=== PATIENT | female | born 1945 | race Asian ===

== ENCOUNTER 2016-10-23 13:48 | Observation (INO) | payer MEDICARE, OTHER ==
--- NOTE | 2016-10-23 14:50 | ED Physician Documentation ---
PD HPI FOCAL NEURO - Stated complaint Stated Complaint: SHAKES/DIZZY - Chief complaint Chief Complaint: Neuro - History obtained from History obtained from: Patient - History of Present Illness Timing - onset: Other (This is a 70-year-old woman with history of arthritis but really no other known past medical history, but does not have a primary care physician who presents with 2 Days of feeling off balance type dizziness associated with her left leg occasionally giving out on her. She has back pain but that is not new, there is no pain in the left leg and no headache. She does have some mild nausea and headache with this. There is no head injury. No chest pain or trouble breathing that was new, she does have mild chronic trouble breathing "I need to exercise more.") - Additional information Additional information: She walks with a cane- but always uses a cane. Review of Systems Ten Systems: 10 systems reviewed and negative Constitutional: reports: Chills. denies: Fever Ears: denies: Drainage/discharge Nose: denies: Rhinorrhea / runny nose, Congestion Throat: denies: Sore throat Cardiac: denies: Chest pain / pressure, Palpitations Respiratory: denies: Dyspnea, Cough PD PAST MEDICAL HISTORY - Past Medical History Past Medical History: No - Present Medications Home Medications: Ambulatory Orders Medication Instructions Recorded Confirmed Calcium Carbonate/Vitamin D3 1 cap PO DAILY 10/23/16 10/23/16 [Calcium 600-Vit D3 500 Softgel] Multivitamin [Multiple Vitamins] 1 tab PO DAILY 10/23/16 10/23/16 Naproxen [Naprosyn] 500 mg pe PO PRN PRN 10/23/16 10/23/16 - Allergies Allergies/Adverse Reactions: Allergies Allergy/AdvReac Type Severity Reaction Status Date / Time No Known Drug Allergies Allergy Verified 10/23/16 14:54 - Living Situation Living Situation: reports: Alone - Social History Does the pt smoke?: No Does the pt drink ETOH?: No Does the pt have substance abuse?: No - Family History Family history: reports: Non contributory PD ED PE NORMAL - Vitals Vital signs reviewed: Yes - General General: Alert and oriented X 3, No acute distress - HEENT HEENT: PERRL, EOMI, Ears normal - Neck Neck: Supple, no meningeal sign, No bony TTP - Cardiac Cardiac: RRR, No murmur - Respiratory Respiratory: No respiratory distress, Clear bilaterally - Abdomen Abdomen: Soft, Non tender - Back Back: No CVA TTP, No spinal TTP - Derm Derm: Normal color, Warm and dry - Extremities Extremities: No deformity, No tenderness to palpate, Normal ROM s pain, No edema , No calf tenderness / cord - Neuro Neuro: Alert and oriented X 3, lap runner 2-12 intact, No motor deficit, No sensory deficit, Normal speech - Psych Psych: Normal mood, Normal affect NIHSS - Time Time: 14:40 - Level of Consciousness Level of consciousness: (0) Alert, Keenly responsive LOC Questions: (0) Answers both Q's correct LOC Commands: (0) Performs both correctly - Gaze Best Gaze: (0) Normal - Visual Visual: (0) No loss - Facial Palsy Facial Palsy: (0) Normal, symmetrical movement - Motor Arms (both separate) Motor Arm (right): (0) No drift Motor Arm (left): (0) No drift - Motor Legs (both separate) Motor Leg (right): (0) No drift Motor Leg (left): (0) No drift - Limb Ataxia Limb Ataxia: (0) Absent - Sensory Sensory: (0) Normal - Best Language Best Language: (0) No aphasia - Dysarthria Dysarthria: (0) Normal - Extinction and Inattention (formally neg Extinction and inattention: (0) No abnormality - Total Score/Results Total Score/Result: 0 Results - Vitals Vitals: Vital Signs - 24 hr 10/23/16 10/23/16 10/23/16 13:55 15:02 16:48 Temperature 36.9 C 36.9 C Heart Rate 78 78 67 Respiratory 20 15 16 Rate Blood Pressure 186/103 H 180/84 H 173/74 H O2 Saturation 94 96 93 Oxygen O2 Source Room air - EKG (time done) 1440 Rate: Rate (enter#) (69) Rhythm: NSR Intervals: Other (LAFB) QRS: LVH Ischemia: Non specific changes Compare to prior EKG: Old EKG unavailable Computer interpretation: Agree with computer - Labs Labs: Laboratory Tests 10/23/16 10/23/16 10/23/16 15:03 15:03 15:03 WBC 6.9 RBC 4.68 Hgb 15.2 Hct 44.7 MCV 95.5 MCH 32.6 H MCHC 34.1 RDW 13.8 Plt Count 175 MPV 9.4 Neut # 5.7 Lymph # 0.7 L [place] # 0.3 Eos # 0.1 Baso # 0.0 Absolute Nucleated RBC 0.00 Nucleated RBCs 0.0 PT INR Sodium 143 Potassium 2.9 L Chloride 103 Carbon Dioxide 30 Anion Gap 10.0 BUN 13 Creatinine 0.9 Estimated GFR (MDRD) 62 L Glucose 142 H Calcium 9.5 Magnesium 1.9 Total Bilirubin 0.6 AST 34 ALT 23 Alkaline Phosphatase 56 Troponin I < 0.04 Total Protein 6.8 Albumin 4.1 Globulin 2.7 Albumin/Globulin Ratio 1.5 Lipase 30 Vitamin B12 10/23/16 10/23/16 15:03 15:04 WBC RBC Hgb Hct MCV MCH MCHC RDW Plt Count MPV Neut # Lymph # [place] # Eos # Baso # Absolute Nucleated RBC Nucleated RBCs PT 11.2 INR 1.0 Sodium Potassium Chloride Carbon Dioxide Anion Gap BUN Creatinine Estimated GFR (MDRD) Glucose Calcium Magnesium Total Bilirubin AST ALT Alkaline Phosphatase Troponin I Total Protein Albumin Globulin Albumin/Globulin Ratio Lipase Vitamin B12 409 - Rads (name of study) CT Head Radiology: Prelim report reviewed (age related change, but NAD) PD MEDICAL DECISION MAKING - ED course ED course: 70-year-old woman with symptoms that are acutely concerning for small CVA with loss of function in the left lower extremity, she is outside the window for TPA. CT shows no abnormality, will place in observation for potential MRI. Call the hospitalist, Dr Meyer at 5:26pm for admission. Potassium was repleted orally. Departure - Departure Disposition: ED Place in Observation Clinical Impression: Left leg weakness, Hypokalemia Condition: Stable Discharge Date/Time: 10/23/16 18:18
[2016-10-23 15:14] LABS: BASOPHILS % (AUTO) 0.5 %; EOSINOPHILS # (AUTO) 0.1 10^3/uL (0.0-0.7); EOSINOPHILS % (AUTO) 1.4 %; HCT - HEMATOCRIT 44.7 % (37.0-47.0); HGB - HEMOGLOBIN 15.2 g/dL (12.0-16.0); LYMPHOCYTES # (AUTO) 0.7 10^3/uL (1.5-3.5); LYMPHOCYTES % (AUTO) 10.4 %; MEAN CORPUSCULAR HEMOGLOBIN 32.6 pg (27.0-31.0); MEAN CORPUSCULAR HGB CONC 34.1 g/dL (32.0-36.0); MEAN CORPUSCULAR VOLUME 95.5 fL (81.0-99.0); MEAN PLATELET VOLUME 9.4 fL (7.9-10.8); MONOCYTES # (AUTO) 0.3 10^3/uL (0.0-1.0); NEUTROPHILS # (AUTO) 5.7 10^3/uL (1.5-6.6); NEUTROPHILS % (AUTO) 82.7 %; RED BLOOD COUNT 4.68 10^6/uL (4.20-5.40); RED CELL DISTRIBUTION WIDTH 13.8 % (12.0-15.0); UNCORRECTED WHITE BLOOD COUNT 6.9 x10^3/uL; WHITE BLOOD COUNT 6.9 x10^3/uL (4.8-10.8)
[2016-10-23 15:23] LABS: ALBUMIN/GLOBULIN RATIO 1.5 (1.0-2.2); BILIRUBIN,TOTAL 0.6 mg/dL (0.2-1.0); CALCIUM 9.5 mg/dL (8.5-10.3); CREATININE 0.9 mg/dL (0.4-1.0); MAGNESIUM 1.9 mg/dL (1.7-2.8); POTASSIUM 2.9 mmol/L (3.5-5.0); TOTAL PROTEIN 6.8 g/dL (6.7-8.2)
[2016-10-23] MEDS ORDERED: POTASSIUM BICARB 25 MEQ TABLET PO STA (15:34)
[2016-10-23] MEDS ORDERED: POTASSIUM BICARB 25 MEQ TABLET PO ONE (16:00)
--- NOTE | 2016-10-23 17:11 | CT Preliminary Report ---
Exam: CT Head W/O IMPRESSION: 1. Negative for acute or focal intracranial abnormality. 2. Mild nonfocal white matter disease. Nonspecific but most commonly attributed to chronic microangio janusz. [facility] SITE ID: [id number]
--- NOTE | 2016-10-23 17:13 | CT Report ---
EXAM: CT HEAD EXAM DATE: 10/23/2016 05:01 PM. CLINICAL HISTORY: Left leg weak. COMPARISON: None. TECHNIQUE: Multiaxial CT images were obtained from the foramen magnum to the vertex. IV contrast: Non e. Reformats: Coronal. In accordance with CT protocol optimization, one or more of the following dose reduction techniques w ere utilized for this exam: automated exposure control, adjustment of mA and/or KV based on patient s ize, or use of iterative reconstructive technique. FINDINGS: Parenchyma: There is mild periventricular white matter hypodensity. Negative for acute hemorrhage. No midline shift or mass effect. Extraaxial Spaces: There is no abnormal subdural or epidural fluid collection. Ventricles: The ventricles are normal and symmetric in size. Sinuses: Imaged paranasal sinuses, orbits, and mastoids show no significant abnormality. Bones: No evidence of fracture or calvarial defect. Other: None. IMPRESSION: 1. Negative for acute or focal intracranial abnormality. 2. Mild nonfocal white matter disease. Nonspecific but most commonly attributed to chronic microangio janusz. [facility] Referring Provider Line: [phone] SITE ID: [id number]
--- NOTE | 2016-10-23 18:12 | HISTORY & PHYSICAL EXAMINATION ---
Chief Complaint - Chief Complaint Chief Complaint: left leg weakness History of Present Illness - Admitted From Admitted From:: ER - History Obtained From Records Reviewed: yes History obtained from: patient and medical records Exam Limitations: none - History of Present Illness HPI Comment/Other: This is a 70-year-old woman with history of arthritis but really no other known past medical history, but does not have a primary care physician who presents with 2 Days of feeling off balance type dizziness associated with her left leg occasionally giving out on her. She has back pain but that is not new, there is no pain in the left leg and no headache. She does have some mild nausea and headache with this. There is no head injury. No chest pain or trouble breathing that was new, she does have mild chronic trouble breathing "I need to exercise more.") History - Past Medical History Cardiovascular: reports: None Respiratory: reports: None, Shortness of breath Neuro: reports: None Endocrine/Autoimmune: reports: None GI: reports: GERD SHOOK SPLICER: reports: None : reports: Incontinence HEENT: reports: Chronic sinusitis Psych: reports: None Musculoskeletal: reports: Osteoarthritis Derm: reports: None MRSA Hx?: No Other Past Medical History: obesity - Past Surgical History HEENT: reports: Tonsil/Adenoidectomy - Family & Social History Living arrangement: At home Living Situation: Alone - Substance History Abuse: Recurrent use of substance despite neg consequences: NONE Dependence: Experiences withdrawal or developed tolerances: NONE - POLST Patient has POLST: No POLST Status: Full Code Meds/Allgy - Home Medications Home Medications: Ambulatory Orders Medication Instructions Recorded Confirmed Calcium Carbonate/Vitamin D3 1 cap PO DAILY 10/23/16 10/23/16 [Calcium 600-Vit D3 500 Softgel] Multivitamin [Multiple Vitamins] 1 tab PO DAILY 10/23/16 10/23/16 Naproxen [Naprosyn] 500 mg pe PO PRN PRN 10/23/16 10/23/16 - Allergies Allergies/Adverse Reactions: Allergies Allergy/AdvReac Type Severity Reaction Status Date / Time No Known Drug Allergies Allergy Verified 10/23/16 14:54 Exam - Vital Signs Reviewed Vital Signs: Yes Vital Signs: Vital Signs x48h Temp Pulse Resp BP Pulse Ox 10/23/16 16:48 67 16 173/74 H 93 10/23/16 15:02 36.9 C 78 15 180/84 H 96 10/23/16 13:55 36.9 C 78 20 186/103 H 94 - Physical Exam General Appearance: positive: No acute distress, Alert Eyes Bilateral: positive: Normal inspection, PERRL Conclusion/Plan - Lab Results Lab results reviewed: Yes Fish Bones: 10/23/16 15:03 10/23/16 15:03 Other Lab Results: Abnormal Lab Results 10/23/16 10/23/16 15:03 15:03 MCH 32.6 pg H pg (27.0-31.0) Lymph # 0.7 10^3/uL L 10^3/uL (1.5-3.5) Potassium 2.9 mmol/L L mmol/L (3.5-5.0) Estimated GFR (MDRD) 62 L (>89) Glucose 142 mg/dL H mg/dL (70-100) - Diagnostic Imaging Results Diagnostic Imaging Results: positive: Prelim report reviewed - EKG Results EKG Interpreted Independently: Yes Issues/Core Measures - Anticipated LOS Anticipated Stay Length: Less than 2 midnights
[2016-10-23] MEDS ORDERED: ONDANSETRON ODT 4 MG TABLET TL PRN (19:34)
[2016-10-23] MEDS ORDERED: ACETAMINOPHEN 325 MG TABLET PO PRN (19:34)
[2016-10-23] MEDS ORDERED: SODIUM CHLORIDE FLUSH 0.9% 10 ML SYRINGE IVP PRN (19:34)
[2016-10-23] MEDS ORDERED: POTASSIUM CHLORIDE INJ 40 MEQ in SODIUM CHLORIDE 0.9% 480 ML IV ONE (19:44)
[2016-10-23 20:06] LABS: PT - PROTHROMBIN TIME 11.2 secs (9.9-12.6)
[2016-10-23] MEDS ORDERED: POTASSIUM CHLOR 10 MEQ/100 ML 100 ML IV SCH ×2 (21:28→21:31)
[2016-10-23] MEDS: ENOXAPARIN 40 MG/0.4 ML SYRINGE SUBQ SCH (21:36)
[2016-10-23] MEDS: ASPIRIN 325 MG TABLET PO SCH (21:37)
[2016-10-23] MEDS: SODIUM CHLORIDE 0.9% 1,000 ML IV SCH (21:37)
[2016-10-23] MEDS ORDERED: POTASSIUM CHLORIDE 20 MEQ TABLET PO SCH (22:00)
[2016-10-23] MEDS: SODIUM CHLORIDE FLUSH 0.9% 10 ML SYRINGE IVP SCH (22:57)
--- NOTE | 2016-10-23 23:12 | Ultrasound Preliminary Report ---
Exam: US Carotid Doppler Complete IMPRESSION: No hemodynamically significant stenoses seen. Validated velocity measurements with angiographic measurements and velocity criteria are extrapolated from diameter data as defined by the Society of Radiologists in Ultrasound Consensus Conference Radi ology 2003; 229;340-346. [facility] SITE ID: [id number]
--- NOTE | 2016-10-23 23:24 | Ultrasound Report ---
EXAM: CAROTID DOPPLER ULTRASOUND EXAM DATE: 10/23/2016 09:42 PM. CLINICAL HISTORY: Cerebrovascular accident. COMPARISON: None. TECHNIQUE: Real-time sonographic vascular imaging was performed by the plumber's assistant through the [employer] d arterial system with a linear transducer utilizing color-flow, Doppler flow and spectral analysis. Multiple accounting representative static images were saved for review. FINDINGS: Bilateral vertebral artery flow is antegrade. Mild amount of calcified plaque seen at the b ilateral carotid bulbs extending into the proximal internal carotid arteries. VELOCITIES: Right: CCA Prox: PSV 58.4 cm/sec. CCA Dist: PSV 43.3 cm/sec, EDV 9.6 cm/sec. ICA Prox: PSV 43.6 cm/sec, EDV 12.0 cm/sec. ICA Mid: PSV 78.8 cm/sec, EDV 19.0 cm/sec. ICA Dist: PSV 71.9 cm/sec, EDV 17.6 cm/sec. ECA: PSV 67.2 cm/sec. Vertebral Artery: PSV 81.8 cm/sec. RVA flow direction: Antegrade. Left: CCA Prox: PSV 78.7 cm/sec. CCA Dist: PSV 69.5 cm/sec, EDV 10.7 cm/sec. ICA Prox: PSV 59.8 cm/sec, EDV 16.2 cm/sec. ICA Mid: PSV 66.8 cm/sec, EDV 14.8 cm/sec. ICA Dist: PSV 82.5 cm/sec, EDV 26.0 cm/sec. ECA: PSV 79.7 cm/sec. Vertebral Artery: PSV 85.7 cm/sec. LVA flow direction: Antegrade. Other: Technically difficult exam due to constant motion. IMPRESSION: No hemodynamically significant stenoses seen. Validated velocity measurements with angiographic measurements and velocity criteria are extrapolated from diameter data as defined by the Society of Radiologists in Ultrasound Consensus Conference Radi ology 2003; 229;340-346. [facility] Referring Provider Line: [phone] SITE ID: [id number]
[2016-10-24] MEDS: SODIUM CHLORIDE 0.9% 1,000 ML IV SCH ×2 (05:54→08:45)
[2016-10-24] MEDS: SODIUM CHLORIDE FLUSH 0.9% 10 ML SYRINGE IVP SCH (05:58)
[2016-10-24] MEDS ORDERED: PANTOPRAZOLE 40 MG VIAL ONE (05:59)
[2016-10-24 06:12] LABS: BASOPHILS # (AUTO) 0.1 10^3/uL (0.0-0.1); BASOPHILS % (AUTO) 0.9 %; EOSINOPHILS # (AUTO) 0.2 10^3/uL (0.0-0.7); EOSINOPHILS % (AUTO) 3.7 %; HCT - HEMATOCRIT 43.8 % (37.0-47.0); HGB - HEMOGLOBIN 14.6 g/dL (12.0-16.0); LYMPHOCYTES # (AUTO) 1.3 10^3/uL (1.5-3.5); MEAN CORPUSCULAR HEMOGLOBIN 32.6 pg (27.0-31.0); MEAN CORPUSCULAR HGB CONC 33.3 g/dL (32.0-36.0); MEAN PLATELET VOLUME 9.6 fL (7.9-10.8); MONOCYTES # (AUTO) 0.4 10^3/uL (0.0-1.0); MONOCYTES % (AUTO) 6.9 %; NEUTROPHILS # (AUTO) 4.1 10^3/uL (1.5-6.6); NEUTROPHILS % (AUTO) 66.5 %; RED BLOOD COUNT 4.47 10^6/uL (4.20-5.40); RED CELL DISTRIBUTION WIDTH 13.8 % (12.0-15.0); UNCORRECTED WHITE BLOOD COUNT 6.1 x10^3/uL; WHITE BLOOD COUNT 6.1 x10^3/uL (4.8-10.8)
[2016-10-24 06:21] LABS: ALBUMIN/GLOBULIN RATIO 1.3 (1.0-2.2); BILIRUBIN,TOTAL 0.7 mg/dL (0.2-1.0); CALCIUM 8.8 mg/dL (8.5-10.3); CREATININE 0.8 mg/dL (0.4-1.0); POTASSIUM 3.6 mmol/L (3.5-5.0); TOTAL PROTEIN 6.2 g/dL (6.7-8.2)
[2016-10-24 06:32] LABS: BILIRUBIN,URINE NEGATIVE (NEGATIVE)
[2016-10-24 06:39] LABS: UR CULTURE IF IND NOT INDICATED; WBC,URINE 0-3 /HPF (0-5)
[2016-10-24] MEDS ORDERED: PANTOPRAZOLE 40 MG VIAL IVP SCH (07:00)
[2016-10-24] MEDS ORDERED: CALCIUM CARB (OYSTER SHELL) 500 MG TABLET PO SCH (08:00)
[2016-10-24] MEDS ORDERED: CHOLECALCIFEROL 400 UNIT TABLET PO SCH (08:00)
[2016-10-24] MEDS ORDERED: CYANOCOBALAMIN 1,000 MCG/ML VIAL IM ONE (08:08)
--- NOTE | 2016-10-24 08:11 | Discharge Plan ---
Discharge Plan Disposition: Home, Self Care Condition: Good Prescriptions: [place]-3 Acid Ethyl Esters [Lovaza] 1 gm PO DAILY #30 capsule Diet: Cardiac Activity Restrictions: No Restrictions Shower Restrictions: No Driving Restrictions: No Weight Bearing: Full Weight Instruction Topics: Exercises Back Leg Pull, Exercises Back Leg Reach, Leg Low Back Pain Poss Causes Additional Instructions or Follow Up instructions: Please continue to take all home medication as prescribed. You will need to see your primary care provider for additional needs including the pain and weakness in your left leg. This can be due to arthritis or sciatic nerve pain. Take tylenol or naproxen for the pain. Take an aspirin a day and watch your cholesterol. Continue to get plenty of sleep at night. Taking Melatonin 10mg can help with sleep and is a natural sedative Be sure to get plenty of water during the day and eat a heart healthy diet. Return to the ER is symptoms reoccur or worsen. If you have chest pain, shortness of breath or fever return to the ER. No Smoking: If you smoke, Please STOP! Call for help. Follow-up with: Nicole Loja ARNP [Physician No Access] -
--- NOTE | 2016-10-24 08:20 | DISCHARGE SUMMARY ---
Discharge Summary Admit Date: 10/23/16 Discharge Date: 10/24/16 Discharging Provider: Fiorella Prabhakar APRN Code Status: Attempt Resuscitation Condition at Discharge: Good Discharge Disposition: 01 Home, Self Care Discharge Facility Name: home - DIAGNOSES Admission Diagnoses: 1 Acute left leg weakness, unspecified 2. Acute hypokalemia 3. Alcohol usage, unspecified 4. obesity with BMI>35 from excessive caloric intake 5. Hyperglycemia, unspecified Discharge Diagnoses with Status of Each Condition: 1. Acute left leg weakness with probable osteoarthritis of multiple sites 2. Acute on chronic alcohol usage without dependence, daily usage 3. Acute hypokalemia with losses 4. Obesity with BMI>30 with excessive caloric intake 5. - HPI History of Present Illness: This is a 70-year-old woman with history of arthritis but really no other known past medical history, but does not have a primary care physician who presents with 2 Days of feeling off balance type dizziness associated with her left leg occasionally giving out on her. She has back pain but that is not new, there is no pain in the left leg and no headache. She does have some mild nausea and headache with this. There is no head injury. No chest pain or trouble breathing that was new, she does have mild chronic trouble breathing "I need to exercise more." - CONSULTS | PROCEDURES Consultations: none Procedures: CT of Head -no acute infarct Carotid doppler - no significant stenosis seen MRA/MRI: pending, patient to have results sent Echo: - HOSPITAL COURSE Hospital Course: Patient is a 70 year old female who presented to the ER with complaint of weakness to the left lower leg for several weeks and worse around the knee and hip joint.She states it "cira alot when I am walking and need to exercise more". She had a low potassium in the ER and the provider, Dr Adame thought she should be admitted for possible CVA/TIA of left side. Patient had a CT of the head, negative for acute process. Carotid ultrasound doppler was negative for stenosis. MRI/MRA of the head and neck was pending at time of discharge. Echo completed prior to discharge and results pending. Hyperglycemia was probably related to patients alcohol beverage and dinner prior to the lab draw. No elevation in blood glucose morning of discharge. Patient was given an aspirin daily. Lipid profile checked and slightly high total cholesterol. Patient was started on omega 3 and given dietary options for heart heathy diet. She did not want to take a statin. She was encouraged to exercise more and as tolerated. She continued MVI, calcium and vitamin D supplemts and naproxen for arthritis. Patient received tylenol for fever and zofran for nausea. She did receive xanax prior to the MRA/MRI for anxiety regarding the study. All blood draws completed and her potassium levels improved and other electrolytes and CBC within normal limits at discharge. She was discharged home with instructions for followup with primary care within 1 week or sooner if symptom reoccurred. - ALLERGIES Allergies/Adverse Reactions: Allergies Allergy/AdvReac Type Severity Reaction Status Date / Time No Known Drug Allergies Allergy Verified 10/23/16 14:54 - MEDICATIONS Home Medications: Ambulatory Orders Medication Instructions Recorded Confirmed Calcium Carbonate/Vitamin D3 1 cap PO DAILY 10/23/16 10/23/16 [Calcium 600-Vit D3 500 Softgel] Multivitamin [Multiple Vitamins] 1 tab PO DAILY 10/23/16 10/23/16 Naproxen [Naprosyn] 500 mg pe PO PRN PRN 10/23/16 10/23/16 [place]-3 Acid Ethyl Esters [Lovaza] 1 gm PO DAILY #30 capsule 10/24/16 - PHYSICAL EXAM AT DISCHARGE General Appearance: positive: No acute distress, Alert Eyes Bilateral: positive: Normal inspection, PERRL, EOMI ENT: positive: ENT inspection nml, Pharynx nml, No signs of dehydration Neck: positive: Nml inspection, Thyroid nml, No JVD, Trachea midline Respiratory: positive: Chest non-tender, No respiratory distress, Breath sounds nml Cardiovascular: positive: Regular rate & rhythm, No murmur, No gallop Peripheral Pulses: positive: 2+ Abdomen: positive: Non-tender, No organomegaly, Nml bowel sounds, No distention Rectal: positive: Non-tender Back: positive: Nml inspection Skin: positive: Color nml, No rash, Warm, Dry Extremities: positive: Non-tender, Full ROM, Nml appearance, No pedal edema. negative: Calf tenderness Neurologic/Psychiatric: positive: Oriented x3, CN's nml (2-12), Motor nml, Sensation nml, Mood/affect nml - LABS Result Diagrams: 10/24/16 05:45 10/24/16 05:45 Other Lab Results: Abnormal Lab Results 10/23/16 10/23/16 10/24/16 15:03 15:03 05:45 MCH 32.6 pg H pg 32.6 pg H pg (27.0-31.0) (27.0-31.0) Lymph # 0.7 10^3/uL L 10^3/uL 1.3 10^3/uL L 10^3/uL (1.5-3.5) (1.5-3.5) Potassium 2.9 mmol/L L mmol/L (3.5-5.0) Estimated GFR (MDRD) 62 L (>89) Glucose 142 mg/dL H mg/dL (70-100) Total Protein Cholesterol 10/24/16 10/24/16 05:45 05:45 MCH Lymph # Potassium Estimated GFR (MDRD) 71 L (>89) Glucose Total Protein 6.2 g/dL L g/dL (6.7-8.2) Cholesterol 215 mg/dL H mg/dL ( - 199) - DIAGNOSTIC IMAGING Diagnostic Imaging Results: Final report reviewed
[2016-10-24] MEDS: ASPIRIN 325 MG TABLET PO SCH (08:34)
[2016-10-24] MEDS: ENOXAPARIN 40 MG/0.4 ML SYRINGE SUBQ SCH (08:41)
[2016-10-24] MEDS ORDERED: POLYETHYLENE GLYCOL 3350 17 GM PACKET PO SCH (09:00)
[2016-10-24] MEDS ORDERED: MULTIVITAMIN TABLET PO SCH (09:00)
[2016-10-24 09:32] LABS: CHOL/HDL RATIO 3.3 (<4.4); CHOLESTEROL 215 mg/dL; HDL CHOLESTEROL 65 mg/dL; TRIGLYCERIDES 116 mg/dL; VLDL CHOLESTEROL 23 mg/dL
[2016-10-24] MEDS ORDERED: ALPRAZolam 0.25 MG TABLET PO PRN (10:35)
[2016-10-24] MEDS ORDERED: OMEGA-3 ACID ETHYL ESTERS 1 GM CAPSULE PO SCH (11:00)
[2016-10-24] MEDS ORDERED: GADOBUTROL 10 MMOL/10 ML VIAL IVP ONE (13:29)
[2016-10-24 13:30] VITALS: BP 145/65
--- NOTE | 2016-10-24 15:19 | MRI Report ---
EXAM: MRI BRAIN WITHOUT CONTRAST EXAM DATE: 10/24/2016 01:29 PM. CLINICAL HISTORY: CVA. COMPARISON: CT head 10/23/2016 TECHNIQUE: Multiplanar, multisequence T1-weighted and fluid-sensitive MR sequences of the brain were performed. Sequences optimized for routine evaluation. Other: None. IV Contrast: None. FINDINGS: Brain Volume: [id number] diffuse cerebral volume loss with mild to moderate ex vacuo dilatation of the ventricles and sulci, appropriate for age Parenchyma/Dura: There is a 16 x 12 mm focus of restricted diffusion involving the right wolf radia ta/right basal ganglia (series 505 image 120) with associated T2 hyperintense signal abnormality, con sistent with an acute infarct, less than one week old. No evidence of intracranial mass or acute hemo rrhage. Scattered T2/FLAIR hyperintense periventricular, subcortical, and deep white matter lesions w ithin the cerebral hemispheres bilaterally and within the flaquito centrally. Chronic punctate parenchyma l microhemorrhages are seen within the flaquito (series 801 image 8). Ventricles/Cisterns: [id number]-lp-[id number] ex-vacuo dilatation. Sinuses: Mucous retention cyst/polyp left maxillary sinus. The remaining paranasal sinuses are clear. Bones: Normal. Other: None. IMPRESSION: 1. A 16 x 12 mm focus of restricted diffusion involving the right wolf radiata/right basal ganglia (series 505 image 120) with associated T2 hyperintense signal abnormality, consistent with an acute i nfarct, less than one week old. 2. No evidence of intracranial mass or acute hemorrhage. 3. Scattered T2/FLAIR hyperintense periventricular, subcortical, and deep white matter lesions within the cerebral hemispheres bilaterally and within the flaquito centrally. While nonspecific, these are fav ored to represent sequela of chronic microangiopathy. 4. Chronic punctate parenchymal microhemorrhages are seen within the flaquito (series 801 image 8). The ordering provider was paged at the time of this dictation. [facility] Referring Provider Line: [phone] SITE ID: [id number]
--- NOTE | 2016-10-24 15:25 | MRI Report ---
EXAM MRA BRAIN EXAM DATE: 10/24/2016 01:29 PM. CLINICAL HISTORY: CVA. COMPARISON: MRI brain and MRA neck obtained concurrently TECHNIQUE: Multiplanar, multisequence MRA sequences of the brain were performed. Other: None. Post-pr ocessing: Multiplanar 3D MIP reconstructions. IV Contrast: None. FINDINGS: RIGHT Internal Carotid (ICA): No aneurysm, stenosis or anomaly. Middle Cerebral (MCA): No aneurysm, stenosis or anomaly. Anterior Cerebral (BEVER[place]): No aneurysm, stenosis or anomaly. Posterior Cerebral ([employer]): The P1 segment of the right [employer] is not well seen, likely hypoplastic or apl astic. The right posterior communicating artery primarily supplies the right [employer] which appears otherw ise unremarkable. Posterior Communicating (P-COM): There is apparent severe stenosis involving the midportion of the ri ght posterior communicating artery (series 401 image 87), 80-90% narrowing. Vertebral: No aneurysm, stenosis or anomaly in the visualized upper vertebral artery. LEFT Internal Carotid (ICA): No aneurysm, stenosis or anomaly. Middle Cerebral (MCA): No aneurysm, stenosis or anomaly. Anterior Cerebral ([place]): No aneurysm, stenosis or anomaly. Posterior Cerebral ([employer]): No aneurysm, stenosis or anomaly. Posterior Communicating (P-COM): No aneurysm, stenosis or anomaly. Vertebral: No aneurysm, stenosis or anomaly in the visualized upper vertebral artery. MIDLINE Anterior Communicating (A-COM): No aneurysm, stenosis or anomaly. Other: None. IMPRESSION: 1. 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 2. origin of the right [employer]. 3. No other hemodynamically significant stenoses within the intracranial arteries. MRA of the neck is dictated separately. 4. No evidence of aneurysm, vascular malformation, occlusion, or dissection. [facility] Referring Provider Line: [phone] SITE ID: [id number]
--- NOTE | 2016-10-24 15:31 | MRI Report ---
EXAM: MR ANGIOGRAM NECK EXAM DATE: 10/24/2016 01:29 PM. CLINICAL HISTORY: CVA. COMPARISON: Carotid ultrasound 10/23/2016 TECHNIQUE: Multiplanar, multisequence MRA sequences of the neck were performed. Other: None. Post-pro cessing: Multiplanar 3D MIP reconstructions. IV Contrast: Without and with. 8 mL Gadavist Evaluation of arterial stenosis is based on a NASCET method of measurement. FINDINGS: RIGHT Common Carotid: Patent. No dissection or significant stenosis. Internal Carotid: Patent. No dissection or significant stenosis. External Carotid: Patent. No dissection or significant stenosis. Vertebral: Patent. No dissection or significant stenosis. LEFT Common Carotid: Patent. No dissection or significant stenosis. Internal Carotid: Patent. No dissection or significant stenosis. External Carotid: Patent. No dissection or significant stenosis. Vertebral: Patent. No dissection or significant stenosis. Intracranial Circulation: Concurrently obtained MRA of the head is dictated separately. Other: There is a 11 mm T1 hyperintense lesion within the left thyroid lobe (series 401 image 14). Th e visualized soft tissues of the neck are otherwise unremarkable. The bones, and lung apices are with in normal limits. IMPRESSION: 1. No hemodynamically significant stenosis, dissection, occlusion, aneurysm or vascular malformation within the extracranial arteries. MRA head is dictated separately. 2. A 11 mm T1 hyperintense lesion within the left thyroid lobe (series 401 image 14). As the MRI appe arance is nonspecific for benign versus malignant etiology, further evaluation with ultrasound is rec ommended. This may be done non-emergently. [facility] Referring Provider Line: [phone] SITE ID: [id number]
--- NOTE | 2016-10-28 01:00 | DISCHARGE SUMMARY ---
DATE OF ADMISSION: 10/23/2016 DATE OF DISCHARGE: 10/24/2016 ADMITTING DIAGNOSES: 1. Acute left lower leg weakness. 2. Acute dizziness. 3. Acute headache with nausea, unspecified. DISCHARGE DIAGNOSES: 1. Acute dizziness secondary to hyperintense lesion within the left thyroid lobe as seen on MRI. 2. Acute left lower leg weakness secondary to 16 X 12 mm focus of restricted diffusion involving the right wolf radiata, right basal ganglia with associated T2 hyperintense signal abnormality consistent with acute infarct less than 1 week old. 3. 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 HOSPITAL COURSE AND TREATMENT: The patient is a 70-year-old woman with a history of arthritis, no other past known medical history. The patient has not seen her primary care provider in several years. She presented to the ER with 2 days of feeling off balance, dizziness with left leg occasional weakness and giving out on her. The patient had come into the ER with an accompanied headache with the left leg weakness; however, had stated that this was chronic and nothing new. The patient did state that she has some mild nausea that day with the headache. The patient was significantly worked up for possible TIA/CVA in the ER. The patient did not have any neurological deficits at that time. The patient's only complaint was having some chills and mild weakness with a dizziness and feeling off balance. The symptoms had resolved when she was completely evaluated in the ER and ER provider felt she needed to man and to be evaluated for possible TIA versus cerebrovascular accident. During the course of treatment, the patient was put on CVA protocol and given aspirin. She had a CT of the head, which was essentially negative. MRI/MRA completed above the brain and neck and impression I reported below. The patient worked with physical and occupational therapy was evaluated with a steady gait. The patient does use a cane daily. At the time of assessment for admission, the patient's nausea had resolved along with her headache. She did have a carotid Doppler study which essentially showed 80-90% severe stenosis with further impression reported below. The patient did have an EKG, which showed normal sinus rhythm and left ventricular hypertrophy with nonspecific changes and old EKG unfortunately was unavailable. The patient also had significant elevated blood pressure with a systolic of 180/84 when she presented to the ER. At the time of discharge, blood pressure was at the highest 160 systolic. She did remain on metoprolol and had been given Cozaar in the ER. The patient's home medication including calcium, multivitamin and Naproxen, which she continued while she was inpatient. The patient did have slight elevation in her blood sugar at 142 at the time of admission, which was within normal limits on the day of discharge him and hemoglobin A1c was within normal limits at discharge at 5.5. All other lab work was essentially unremarkable. MRI and MRA were done on the second day status and the patient was requesting to be able to be discharged home, even though the report for an MRI and MRA had not been reported. She did show symptoms that were acutely concerning for small CVA with loss of function in the left lower extremity, even though she was outside the window for TPA. The CTA did show no abnormality. The MRI and MRA, was positive for an acute infarct; however, had been not within the last 24-48 hours that patient had presented to the ER. Impression showed that this was an infarct that occurred some time during the prior week. The patient also did have a potassium level at admission of slightly below normal at 2.9, which was replaced. She went home with a potassium greater than 3.5. The patient was notified of the results of the MRI and MRA and stated she would followup with primary care provider. MEDICATIONS AT TIME OF DISCHARGE: 1. Calcium carbonate. 2. Multivitamin. 3. Naproxen. The patient did declined being placed on a statin so she was placed on [place] 3 and encouraged to take niacin along with that. The patient's lipid profile was completed and was within normal limits for her cholesterol. The patient did agree to take aspirin daily at the time of discharge. Discharge PE: Vitals Vital signs reviewed: Yes - General General: Alert and oriented X 3, No acute distress - HEENT HEENT: PERRL, EOMI, Ears normal - Neck Neck: Supple, no meningeal sign, No bony TTP - Cardiac Cardiac: RRR, No murmur, S1 and S2 - Respiratory Respiratory: No respiratory distress, breath sounds clear bilaterally - Abdomen Abdomen: Soft, Non tender and no pain with palpation - Back Back: No CVA TTP, No spinal TTP - Derm Derm: Normal color, Warm and dry - Extremities Extremities: No deformity, No tenderness to palpate, Normal ROM s pain, No edema , No calf tenderness / cord - Neuro Neuro: Alert and oriented X 3, shampoo person 2-12 intact, No motor deficit, No sensory deficit, Normal speech - Psych Psych: Normal mood, Normal affect INSTRUCTIONS FOR FOLLOWUP: 1. Diet: The patient understood she was to continue to eat a heart healthy, low fat diet. She was encouraged to limit her amount of caffeine and to drink more water. She is encouraged to avoid sodas. 2. Activity: The patient was encouraged to get daily exercise, walking was encouraged. The patient was encouraged to get plenty of rest at night, between 7 -8 hours of sleep was best. 3. Followup: The patient was encouraged to followup within 1-2 days of discharge with her primary care provider to notify them of the results from MRI and MRA. These results will be forwarded to her primary care provider. The patient was also encouraged to continue to use her cane and if she was to experience similar symptoms or worsening symptoms she was to return to the ER. The patient was also encouraged to return to the ER if she had chest pain or shortness of breath and to call 911. The patient verbally understood all instructions that were given at discharge. She did decline a use of a statin. She stated that she had been on a statin at one time prior and her doctor had taken her off that because of the muscle weakness and pain. The patient was discharged home that day and friend was to be picking her up and take her home. STATUS: The patient was to remain a DNR status at discharge. TIME SPENT: At discharge for education planning and assessment was 40 minutes. JOB #: [id number] EXT JOB #:[id number] PAULA
--- NOTE | 2016-10-28 01:28 | HISTORY & PHYSICAL EXAMINATION ---
DATE OF ADMISSION: 10/23/2016 ATTENDING PROVIDER: Fiorella Prabhakar. The patient's status was observation. CHIEF COMPLAINT: Left leg weakness and headache. HISTORY OF PRESENT ILLNESS: The patient is a 70-year-old woman who presented to the ER with complaint of left leg weakness for 2 days and feeling off balance with a headache and mild nausea. T he patient has only significant history of arthritis and has not seen primary care provider in [facility]. The patient states that the dizziness was associated with her left leg occasionally giving out on her. She states that she has had chronic leg pain and back pain that is not new, but the pain in the left leg started to worsen, so she decided to come to the ER. The patient's nausea and headach e had almost all resolved by the time she was assessed in the ER. The patient states she had no head injury or trauma. She denied chest pain or shortness of breath. The patient stated she does have some mild difficulty with breathing, but at only when she stated "I need to exercise more". The patient d enied pain at the time of assessment. While in the ER, CT of the head was performed to rule out possi ble hemorrhagic stroke, which was negative for any acute abnormalities. The patient's EKG was also un remarkable with sinus rate and rhythm. not had similar symptoms in the past. It was noted that her bl ood pressure was quite high while in the ER with a systolic of 186/103. She also was found to have a low potassium at 2.9. Blood glucose was also 142. Request was made for the patient to be admitted for possible TIA/CVA since she still remained dizzy. ALLERGIES: NO KNOWN DRUG ALLERGIES. HOME MEDICATIONS: 1. Calcium carbonate. 2. Multivitamin. 3. Naproxen. PAST MEDICAL HISTORY: Osteoarthritis, chronic sinusitis, incontinence and GERD. PAST SURGICAL HISTORY: Tonsillectomy and adenoidectomy. PAST FAMILY HISTORY: Reviewed with the patient and is not pertinent at this time. PAST SOCIAL HISTORY: The patient states that she lives at home alone, does use a cane. She denies alc ohol or smoking and does not use illicit drugs. REVIEW OF SYSTEMS: Ten systems have been reviewed and negative, with exception as discussed in the HP I prior. She is negative for fever, chills, shortness of breath, or chest pain. She is negative for v omiting, constipation or diarrhea. She did admit to a past headache and nausea, which has now resolve d and she does admit to weakness and left leg weakness which is resolving. PHYSICAL EXAMINATION: CONSTITUTIONAL: The patient is alert, in no acute distress. EYES: Pupils are equal, round and react to light and accommodation. Conjunctivae and sclerae was salma cteric, not injected. ENT: Nares are patent. No nasal discharge. OROPHARYNX: No masses, exudates or lesions. Mucous membranes are moist. NECK: Supple. No thyromegaly. CARDIOVASCULAR: S1, S2 noted. No gallops, murmurs or rubs. Normal PMI. No JVD. RESPIRATORY: Breath sounds are clear and equal bilaterally to auscultation and percussion, no retract ions, nasal flaring, or increased work of breathing. GASTROINTESTINAL: Abdomen was soft, nontender. Bowel sounds are present. No guarding or rebound. SKIN: Warm, dry, intact. Normal turgor. No evidence of rash, lesions, or cellulitis. HEMATOLOGIC: No ecchymosis. The patient was hemodynamically stable. No active bleeding. LYMPHATICS: No cervical, axillary, supraclavicular lymphadenopathy was noted. PSYCHIATRIC: Behavior is appropriate, oriented x3. Pleasant mood and cooperative. NEUROLOGIC: The patient was alert, GCS 15. Cranial nerves 2-12 were grossly intact. Sensory was intac t. Motor was 5/5 to upper and lower extremities. GENITOURINARY: No CVA tenderness. No masses were palpated. No bladder distention. LABORATORY AND DIAGNOSTIC DATA: I personally reviewed all laboratory and diagnostic data in the medic al records. They are as follows: Sodium 142, potassium 2.9, chloride 103, BUN 13, Creatinine 0.9, glu cose 142, GFR WAS 62. WBC 6.9, platelets 175. CT of the head diagnostic impression showed negative fo r acute or focal intracranial abnormality, mild nonfocal white matter disease nonspecific but most co mmonly attributed to chronic microangiopathy. EKG showed sinus rhythm with left anterior fascicular b lock with left ventricular hypertrophy. IMPRESSION AND PLAN: 1. Acute left lower leg weakness with possible transient ischemic attack/cerebrovascular accident. PL AN: Admit the patient to observation. Will rule out possible CVA with an MRI and MRA both neck and br ain. Carotid Doppler has been requested and ordered. The patient was given aspirin and will continue daily. The patient will work with physical and occupational therapy. Fall precautions. Lipid profile has been requested. 2. Acute headache with nausea. PLAN: Zofran IV. Tylenol for pain and headache. Carotid Doppler has be en requested and echocardiogram has been requested. CT of head was essentially negative and MRI brain has been requested. 3. Obesity with body mass index greater than 30 with excessive caloric intake. PLAN: Counseling on we ight management and patient on low-fat cardiac diet. STATUS: The patient is a FULL CODE STATUS:. DVT prophylaxis with Lovenox and SCDs. RISK ASSESSMENT/DISPOSITION: The patient is at high risk for worsening comorbidities. She will requir e IV medication with high risk for toxicity and additional diagnostics. She will require at least 1 m idnight stay. Time spent with the patient for assessment planning was 40 minutes. JOB #: [id number] EXT JOB #:[id number]
== END 2016-10-24 14:19 | disposition home or self-care (01) ==
LOC: ED 13:48 → OBS 18:10
PROVIDERS: ADMIT Nurse Practitioner; ATTEND Nurse Practitioner
DX: E07.89 Other specified disorders of thyroid (principal); I63.9 Cerebral infarction, unspecified; I66.8 Occlusion and stenosis of other cerebral arteries; G83.14 Monoplegia of lower limb affecting left nondominant side; R29.700 NIHSS score 0; E87.6 Hypokalemia; R51 Headache; R11.0 Nausea; G89.29 Other chronic pain; M19.90 Unspecified osteoarthritis, unspecified site; M54.9 Dorsalgia, unspecified; Z66 Do not resuscitate; Z79.1 Long term (current) use of non-steroidal anti-inflammatories (NSAID); E66.09 Other obesity due to excess calories; Z68.31 Body mass index [BMI] 31.0-31.9, adult; Z71.3 Dietary counseling and surveillance
CPT/HCPCS: 36415; 70450; 70544; 70549; 70551; 80053; 80061; 81001; 82607; 82652; 83690; 83735; 84484; 85025; 85610; 85730; 93005; 93306; 93880; 96372; 96374; 99284; 99285; A9270; A9585; G0378; J1650; 87086

== ENCOUNTER 2017-04-19 19:34 | Outpatient (CLI) | payer MEDICARE, OTHER | END 2017-04-19 19:35 | disposition critical access hospital (66) | LOC: EMS 19:34 | PROVIDERS: ATTEND Surgery | DX: S69.92XA Unspecified injury of left wrist, hand and finger(s), initial encounter (principal); W18.39XA Other fall on same level, initial encounter; Y93.01 Activity, walking, marching and hiking | CPT/HCPCS: A0425; A0429 ==

== ENCOUNTER 2017-04-19 20:02 | Emergency (ER) | payer MEDICARE, OTHER ==
--- NOTE | 2017-04-19 20:55 | ED Physician Documentation ---
PD HPI UPPER EXT INJURY - Stated complaint Stated Complaint: GLF - LEFT WRIST INJURY - Chief complaint Chief Complaint: Ext Problem - History obtained from History obtained from: Patient - History of Present Illness Location: Left Type of injury: Fall Where injury occurred: Street Timing - onset: Enter time (19:00) Timing - details: Abrupt onset Pain level now: 6 Improved by: Rest, Immobilization Worsened by: Moving, Palpating Associated symptoms: Swelling. No: Weakness, Numbness Contributing factors: No: Anticoagulated, Prior ortho surgery, Prosthetic joint Similar symptoms before: Has not had sx before Recently seen: Not recently seen - Additonal information Additional information: 7 PM tonight, while trying to get into vehicle (has to step up to get in, as it is a truck), she lost her balance and fell on outstretched LUE, sustained injury to left wrist, c/o left wrist pain and swelling. She is right-hand dominant Review of Systems Skin: reports: Abrasion (s), Laceration (s) Musculoskeletal: reports: Joint pain (left wrist), Joint swelling. 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 : Incontinence HEENT: Chronic sinusitis Psych: None Musculoskeletal: Osteoarthritis Derm: None - Past Surgical History Past Surgical History: No HEENT: Tonsil/Adenoidectomy - Present Medications Home Medications: Ambulatory Orders Medication Instructions Recorded Confirmed Calcium Carbonate/Vitamin D3 1 cap PO DAILY 10/23/16 10/23/16 [Calcium 600-Vit D3 500 Softgel] Multivitamin [Multiple Vitamins] 1 tab PO DAILY 10/23/16 10/23/16 Naproxen [Naprosyn] 500 mg pe PO PRN PRN 10/23/16 10/23/16 [place]-3 Acid Ethyl Esters [Lovaza] 1 gm PO DAILY #30 capsule 10/24/16 Potassium Chloride 10 meq PO 04/19/17 oxyCODONE/ACET 5/325 [Percocet 5 1 - 2 each PO Q6H PRN #20 tablet 04/19/17 mg/325 mg] - Allergies Allergies/Adverse Reactions: Allergies Allergy/AdvReac Type Severity Reaction Status Date / Time No Known Drug Allergies Allergy Verified 04/19/17 20:08 - Social History Does the pt smoke?: No Smoking Status: Never smoker Does the pt drink ETOH?: No Does the pt have substance abuse?: No - POLST Patient has POLST: No POLST Status: Full Code PD ED PE NORMAL - Vitals Vital signs reviewed: Yes - General General: Alert and oriented X 3, No acute distress, Well developed/nourished - HEENT HEENT: Atraumatic, PERRL, EOMI - Neck Neck: No bony TTP - Derm Derm: Normal color, Warm and dry - Neuro Neuro: Alert and oriented X 3, No motor deficit, No sensory deficit Eye Opening: Spontaneous Motor: Obeys Commands Verbal: Oriented GCS Score: 15 PD ED PE EXPANDED - Extremities Extremities: Deformity, Tenderness, Limited ROM, Swelling, Bruising, Left wrist Results - Vitals Vitals: Oxygen O2 Source Room air - Rads (name of study) left wrist xrays Radiology: Prelim report reviewed, See rad report left wrist post-reduction xrays Radiology: Prelim report reviewed, See rad report Procedures - Reduction Body part reduced: Left, Wrist Fracture or dislocation: Fracture Anesthesia: Hematoma block, Lidocaine (enter cc) (5), Marcaine (enter cc) (5) Reduction aftercare: NV intact, Xray confirms reduction, Alignment improved, Splint applied, Sling, Patient tolerated well PD MEDICAL DECISION MAKING - ED course Complexity details: reviewed results, re-evaluated patient, considered differential, d/w patient Departure - Departure Disposition: 01 Home, Self Care Clinical Impression: Wrist fracture, left Qualifiers: Encounter type: initial encounter Fracture type: closed Qualified Code(s): S62.102A - Fracture of unspecified carpal bone, left wrist, initial encounter for closed fracture Condition: Good Instructions: ED Sling, ED Fx Wrist General Follow-Up: Bhaskar Aguero MD [Provider Admit Priv/Credential] - (Call Friday (04/21/17) to arrange for next available appointment) Prescriptions: oxyCODONE/ACET 5/325 [Percocet 5 mg/325 mg] 1 - 2 each PO Q6H PRN #20 tablet PRN Reason: Pain Discharge Date/Time: 04/19/17 23:36
[2017-04-19] MEDS ORDERED: BUPIVACAINE 0.5% PF 30 ML VIAL SUBQ STA (21:05)
[2017-04-19] MEDS ORDERED: LIDOCAINE 2% 10 ML MDV SUBQ STA (21:05)
[2017-04-19] MEDS ORDERED: BUPIVACAINE 0.25% PF 30 ML VIAL SUBQ STA (21:15)
--- NOTE | 2017-04-19 21:42 | XRAY Report ---
EXAM: LEFT WRIST RADIOGRAPHY EXAM DATE: 04/19/2017 08:55 PM. CLINICAL HISTORY: Fall, wrist pain. COMPARISON: None. TECHNIQUE: 4 views. FINDINGS: Bones: Comminuted and impacted intra-articular distal radius fracture with mild dorsal displacement a nd dorsal angulation measuring 50 degrees. Probable ulnar styloid avulsion fracture. Joints: Carpal alignment is preserved. Soft Tissues: Diffuse soft tissue swelling. IMPRESSION: Moderately angulated and impacted distal radius fracture. Probable ulnar styloid fracture . [facility] Referring Provider Line: [phone] SITE ID: [id number]
[2017-04-19] MEDS ORDERED: oxyCODONE/ACET 5/325 Prepack 4 PO STA (23:00)
--- NOTE | 2017-04-19 23:23 | XRAY Preliminary Report ---
Exam: XR WRIST 2 VIEW LT IMPRESSION: Acute comminuted impacted intra-articular distal radius fracture with moderate dorsal ang ulation. Dorsal displacement is improved with mild dorsal displacement remaining. Displaced ulnar sty loid fracture. [facility] SITE ID: [id number]
--- NOTE | 2017-04-19 23:23 | XRAY Report ---
EXAM: LEFT WRIST RADIOGRAPHY EXAM DATE: 04/19/2017 10:56 PM. CLINICAL HISTORY: Post reduction. Left wrist postreduction. COMPARISON: Left wrist 04/19/2017. TECHNIQUE: 2 views. FINDINGS: Acute comminuted impacted intra-articular distal radius fracture with moderate dorsal angul ation. Dorsal displacement is improved with mild dorsal displacement remaining. Displaced ulnar stylo id fracture. Adjacent soft tissue swelling. New overlying cast. Mild first carpal metacarpal osteoarthritis. IMPRESSION: Acute comminuted impacted intra-articular distal radius fracture with moderate dorsal ang ulation. Dorsal displacement is improved with mild dorsal displacement remaining. Displaced ulnar sty loid fracture. [facility] Referring Provider Line: [phone] SITE ID: [id number]
[2017-04-19 23:37] VITALS: BP 132/74
== END 2017-04-19 23:36 | disposition home or self-care (01) ==
LOC: EDUNIT# → ED 20:02
DX: S52.501A Unspecified fracture of the lower end of right radius, initial encounter for closed fracture (principal); S62.102A Fracture of unspecified carpal bone, left wrist, initial encounter for closed fracture; V58.4XXA Person boarding or alighting a pick-up truck or van injured in noncollision transport accident, initial encounter; Y93.01 Activity, walking, marching and hiking; Y92.410 Unspecified street and highway as the place of occurrence of the external cause
CPT/HCPCS: 25605; 99283

== ENCOUNTER 2017-04-24 13:18 | Outpatient (CLI) | payer MEDICARE, OTHER ==
[2017-04-24 13:47] LABS: CALCIUM 9.5 mg/dL (8.5-10.3); CREATININE 0.8 mg/dL (0.4-1.0)
== END 2017-04-24 13:19 | disposition home or self-care (01) ==
LOC: LAB 13:18
PROVIDERS: ATTEND Orthopaedic Surgery
DX: Z01.818 Encounter for other preprocedural examination (principal); S52.532A Colles' fracture of left radius, initial encounter for closed fracture; S52.572A Other intraarticular fracture of lower end of left radius, initial encounter for closed fracture
CPT/HCPCS: 36415; 80048; 93005

== ENCOUNTER 2017-04-28 07:02 | Day surgery (SDC) | payer MEDICARE, OTHER ==
[2017-04-28] MEDS ORDERED: ceFAZolin 2 GM/50 ML 2 GM/50 ML BAG IV ONE (07:13)
[2017-04-28] MEDS ORDERED: BUPIVACAINE 0.5% PF 10 ML VIAL ONE (08:43)
[2017-04-28] MEDS ORDERED: LACTATED RINGERS 1,000 ML IV ONE ×2 (09:03→10:30)
[2017-04-28] MEDS ORDERED: BUPIVACAINE 0.5%-EPI 1:200000 PF 10 ML VIAL ONE (09:33)
[2017-04-28] MEDS ORDERED: BUPIVACAINE 0.5%-EPI 1:200000 PF 30 ML VIAL SUBQ ONE ×2 (09:37)
--- NOTE | 2017-04-28 11:26 | XRAY Report ---
INTRAOPERATIVE LEFT FOREARM: 04/28/2017 CLINICAL INDICATION: Fracture fixation. FINDINGS: Intraoperative images demonstrate side plate and screw fixation of the distal radial fracture, with improved alignment. 32 seconds of fluoroscopy time was provided to Dr. Gamino; 4 spot images obtained. IMPRESSION: INTRAOPERATIVE IMAGING OF LEFT RADIUS FRACTURE FIXATION. TD: 04/28/2017 11:25
[2017-04-28] MEDS ORDERED: DEXAMETHASONE 4 MG/ML VIAL IVP ONE (11:35)
[2017-04-28] MEDS ORDERED: ONDANSETRON 4 MG/2 ML VIAL IVP ONE (11:35)
[2017-04-28] MEDS ORDERED: LIDOCAINE-MPF 2% 5 ML VIAL IM ONE (11:35)
[2017-04-28] MEDS ORDERED: MIDAZOLAM 2 MG/2 ML VIAL IVP ONE (11:35)
[2017-04-28] MEDS ORDERED: PROPOFOL 200 MG/20 ML VIAL IVP ONE (11:35)
[2017-04-28] MEDS ORDERED: ePHEDrine 50 MG/ML VIAL IVP ONE (11:35)
[2017-04-28] MEDS ORDERED: fentaNYL 250 MCG/5 ML VIAL IVP ONE (11:35)
[2017-04-28] MEDS ORDERED: ACETAMINOPHEN 1,000 MG/100 ML 100 ML IV ONE (11:55)
[2017-04-28] MEDS ORDERED: oxyCOD/ACETAMIN 5 MG/325 MG TABLET PO ONE (12:57)
--- NOTE | 2017-04-28 13:24 | OPERATIVE REPORT ---
DATE OF SERVICE: 04/28/2017 Physician: Twin Gamino MD PREOPERATIVE DIAGNOSIS: Closed, comminuted distal radius fracture, left. POSTOPERATIVE DIAGNOSIS: Closed, comminuted distal radius fracture, left. PROCEDURE PERFORMED: Left distal radius open reduction internal fixation with volar plate. 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 ANESTHESIA: SAMPLE CASE PORTER ANESTHESIA TYPE: LMA. IMPLANTS: Biomet volar distal radius plate set, 8-hole T plate. COMPLICATIONS: None. ESTIMATED BLOOD LOSS: 10 mL SPECIMENS: None. INDICATIONS: This woman had a fall 9 days earlier suffering a severely comminuted, dorsally displaced, distal radius fracture. DESCRIPTION OF PROCEDURE: The patient was brought into the operating room and placed under adequate general anesthesia. The left upper extremity was then prepped and sterilely draped in the usual fashion. An arm tourniquet was placed and eventually inflated to 250 mmHg for 80 minutes. The timeout was then held to identify patient, site and procedure. Usual volar longitudinal incision was made overlying the distal portion of the flexor carpi radialis. Because of the swelling, this tendon was quite difficult to identify externally. The distal end of the incision had an angle to it to allow for flexion and extension of the wrist. With spreading the soft tissue, the sheath of the flexor carpi radialis was identified and then split longitudinally. Tendon was then displaced to the ulnar side and an incision made in the deep sheath to the flexor carpi radialis. At this point, it was very difficult to find landmarks. There was gross swelling both of the fatty tissue and of the muscle. Portion of the fat tissue appeared grayish and I removed them wherein possible. Median nerve was identified palpably but never seen. The deepening of the incision and lengthening somewhat eventually revealed the volar aspect of the distal radius. The very distal end seemed to be completely knocked off dorsally. A Culbertson was used to gently lever this fragment back into a reasonable reduction. The C-arm fluoroscopy was introduced at this point and during the procedure, multiple times for good AP, lateral and lifted lateral views. With some further maneuvering, it was possible to get the distal fragment to be fairly stable, although its tilt was 0 rather than 10 degrees positive. In any case, this was thought to be a pretty good reduction for the status of her wrist. The distal volar radial plate was chosen as an 8-hole and slid into the wound. With pinning it to the distal fragment, the T portion of the longitudinal portion of the plate was lifted off the radius maybe 15 degrees. Two guidewires and 1 peg were then placed in the distal fragment. A screw was then placed proximally in the plate and with pulling this down the angle between the plate and the radius was reduced and the position of the distal fragment was improved to a full neutral position. Additional pegs and screws were applied in the distal portion of the plate proximally. The slot screw was secured with a bicortical screw. The additional locking screws in the proximal portion of the plate were filled. In the end, a total of 8 locking screws and/or pegs were used as well as 2 nonlocking screws. C-arm fluoroscopy showed a very good reduction. Wound was irrigated with normal saline. Flexor carpi radialis sheath was then reapproximated superficial to the tendon. Some 3-0 Vicryl interrupted sutures were used to help close the subcutaneous tissue. Skin was closed with a running 3-0 Prolene subcuticular stitch reinforced with Steri-Strips. Sterile dressing was applied. The patient was awakened, extubated, and taken to the recovery room in good condition, having tolerated the procedure well. TD: 04/28/2017 13:23
[2017-04-28 13:38] VITALS: BP 132/62
--- NOTE | 2017-04-29 10:17 | XRAY Report ---
[facility] Fluoroscopy time only, 4 images submitted for interpretation. Fluoroscopy time 0 minutes, 32 seconds. KEYLAD
== END 2017-04-28 07:03 | disposition home or self-care (01) ==
LOC: SDS 07:02
PROVIDERS: ATTEND Orthopaedic Surgery
PROC: 0PSJ04Z Reposition Left Radius with Internal Fixation Device, Open Approach (ICD-10-PCS; principal; 2017-04-28 08:15)
DX: S52.552A Other extraarticular fracture of lower end of left radius, initial encounter for closed fracture (principal)
CPT/HCPCS: 25607; 73090; A9270; C1713; J0131; J0690; J3010; J7120

== ENCOUNTER 2018-02-08 14:52 | Emergency (ER) | payer MEDICARE, OTHER ==
--- NOTE | 2018-02-08 15:21 | ED Physician Documentation ---
PD HPI OPHTHO - Stated complaint Stated Complaint: R EYE BLEEDING - Chief complaint Chief Complaint: Heent - History obtained from History obtained from: Patient - History of Present Illness Timing - onset: How many hours ago (2) Timing - details: Abrupt onset, Still present Pain level max: 0 Pain level now: 0 Location: Right Quality / character: No: Itching, Burning, Aching, Throbbing, Sharp Associated symptoms: Redness, Swelling, Discharge. No: Tearing, Matting, FB sensation, Photophobia, Double vision, Decreased vision, Loss of vision, Headache Contributing factors: Wears glasses. No: Exposed to conjunctivitis, Recent URI, FB, UV light (welding etc), Chemical exposure, acid, Chemical exposure, base, Blunt trauma, Penetrating trauma, Wears contacts Similar symptoms before: Has not had sx before Recently seen: Not recently seen - Additional information Additional information: 72-year-old female with history of osteoarthritis and takes aspirin and Aleve 3 tablets daily here with complaint of red eye swelling with bleeding about 2 hours ago. Patient stated she woke up this morning feeling like there is something on the lateral aspect of her right eye and just ignored it. Later she felt like some discomfort when she looked towards the right side. Then 2 hours ago she stated she noticed that her right eye is bleeding and something is coming out of it. Patient states she denies any trauma or any foreign objects hitting her face. She states that she might have woken up and scratched her eye but cannot recall. She states she wears eyeglasses but has not seen an eye doctor for many years. Review of Systems Ten Systems: 10 systems reviewed and negative Constitutional: denies: Fever, Chills, Myalgias Eyes: reports: Discharge, Irritation, Other (Wears eyeglasses). denies: Loss of vision, Decreased vision, Photophobia Ears: denies: Drainage/discharge Nose: denies: Rhinorrhea / runny nose, Congestion, Epistaxis, Sinus pressure / pain Respiratory: denies: Cough GI: denies: Nausea, Vomiting Neurologic: denies: Generalized weakness, Focal weakness, Numbness, Difficulty speaking, Near syncope, Syncope, Confused, Altered mental status, Headache, Head injury, LOC Immunocompromised: denies: Immunocompromised PD PAST MEDICAL HISTORY - Past Medical History Past Medical History: No Cardiovascular: None Respiratory: Shortness of breath Neuro: None Endocrine/Autoimmune: None GI: GERD 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 : Incontinence HEENT: Chronic sinusitis Psych: None Musculoskeletal: Osteoarthritis Derm: None - Past Surgical History Past Surgical History: No HEENT: Tonsil/Adenoidectomy - Present Medications Home Medications: Ambulatory Orders Medication Instructions Recorded Confirmed Calcium Carbonate/Vitamin D3 1 cap PO DAILY 10/23/16 04/28/17 [Calcium 600-Vit D3 500 Softgel] Multivitamin [Multiple Vitamins] 1 tab PO DAILY 10/23/16 04/28/17 Naproxen [Naprosyn] 500 mg pe PO PRN PRN 10/23/16 04/28/17 [place]-3 Acid Ethyl Esters [Lovaza] 1 gm PO DAILY #30 capsule 10/24/16 04/28/17 Potassium Chloride 10 meq PO DAILY 04/19/17 04/28/17 - Allergies Allergies/Adverse Reactions: Allergies Allergy/AdvReac Type Severity Reaction Status Date / Time No Known Drug Allergies Allergy Verified 04/25/17 09:54 - Social History Does the pt smoke?: No Smoking Status: Never smoker Does the pt drink ETOH?: No Does the pt have substance abuse?: No - Immunizations Immunizations are current?: No - POLST Patient has POLST: No POLST Status: Full Code PD ED PE NORMAL - Vitals Vital signs reviewed: Yes - General General: Alert and oriented X 3, No acute distress, Well developed/nourished - HEENT HEENT: Atraumatic, PERRL, EOMI, Ears normal, Moist mucous membranes, Pharynx benign, Other (Right subconjunctival hemorrhage with tissue extending out of the orbit. Right orbit nontender, no step-off. Globe soft and not tense.) - Neck Neck: Supple, no meningeal sign - Cardiac Cardiac: RRR, No murmur - Respiratory Respiratory: Clear bilaterally - Abdomen Abdomen: Normal bowel sounds, Soft, Non tender, Non distended - Derm Derm: Warm and dry - Extremities Extremities: No deformity - Neuro Neuro: Alert and oriented X 3 - Psych Psych: Normal mood, Normal affect Results - Vitals Vitals: Vital Signs - 24 hr 02/08/18 02/08/18 14:55 16:10 Temperature 36.3 C L Heart Rate 83 69 Respiratory 16 16 Rate Blood Pressure 201/90 H 173/86 H O2 Saturation 99 96 Oxygen O2 Source Room air - Labs Labs: Laboratory Tests 02/08/18 02/08/18 02/08/18 15:35 15:35 15:35 WBC 5.7 RBC 4.83 Hgb 15.2 Hct 47.0 MCV 97.3 MCH 31.5 H MCHC 32.3 RDW 13.6 Plt Count 226 MPV 8.7 Neut # (Auto) 4.1 Lymph # (Auto) 1.0 L [place] # (Auto) 0.4 Eos # (Auto) 0.2 Baso # (Auto) 0.0 Absolute Nucleated RBC 0.00 Nucleated RBC % 0.0 PT 11.6 INR 1.0 APTT 30.8 Sodium 143 Potassium 3.1 L Chloride 101 Carbon Dioxide 31 Anion Gap 11.0 BUN 16 Creatinine 0.7 Estimated GFR (MDRD) 82 L Glucose 122 H Calcium 9.4 Total Bilirubin 0.9 AST 22 ALT 18 Alkaline Phosphatase 73 Total Protein 7.7 Albumin 4.3 Globulin 3.4 Albumin/Globulin Ratio 1.3 Lipase 40 PD MEDICAL DECISION MAKING - ED course Complexity details: reviewed results, re-evaluated patient, considered differential (Subconjunctival hemorrhage, orbital hematoma, globe rupture), d/w patient ED course: 1624 patient sitting the chair in no acute distress and right eye bleeding had stopped. Patient denies any pain or visual changes. Inform of lab results and awaiting CT scan results. After speaking to the patient will bit more she states she drinks 2-4 large beers every day. 1707 patient in no acute distress and nontoxic appearing she states she wants to go home now. Informed that the CT scan result was normal. Emphasized to her to call the primary special education teacher as soon as possible for reevaluation. Patient instructed to stop taking aspirin or NSAIDs until cleared by the primary special education teacher. 1715 Patient was also informed that her potassium is low 3.1 and should be eating foods high in potassium. Patient stated she has potassium pills at home and will take it when she gets home. Patient's blood pressure is elevated and patient states she wants to go home now and will have her blood pressure check with her primary doctor. Patient expressed understanding. Departure - Departure Disposition: Home, Self Care Clinical Impression: Hypokalemia, Hypertension Subconjunctival bleed Qualifiers: Laterality: right Qualified Code(s): H11.31 - Conjunctival hemorrhage, right eye Condition: Stable Instructions: ED Eye Injury Subconj Hemorrhage Follow-Up: Javier White MD [Provider Admit Priv/Credential] - Comments: Call the primary special education teacher in 1-2 days for appointment as soon as possible. Maintain safety avoid scratching your eyes. Avoid taking aspirin or NSAIDs such as Aleve for now until cleared by the eye doctor. If worse return to the emergency room.
[2018-02-08 15:41] LABS: BASOPHILS % (AUTO) 0.9 %; EOSINOPHILS # (AUTO) 0.2 10^3/uL (0.0-0.7); EOSINOPHILS % (AUTO) 3.7 %; HGB - HEMOGLOBIN 15.2 g/dL (12.0-16.0); LYMPHOCYTES % (AUTO) 16.9 %; MEAN CORPUSCULAR HEMOGLOBIN 31.5 pg (27.0-31.0); MEAN CORPUSCULAR HGB CONC 32.3 g/dL (32.0-36.0); MEAN CORPUSCULAR VOLUME 97.3 fL (81.0-99.0); MEAN PLATELET VOLUME 8.7 fL (7.9-10.8); MONOCYTES # (AUTO) 0.4 10^3/uL (0.0-1.0); MONOCYTES % (AUTO) 6.5 %; NEUTROPHILS # (AUTO) 4.1 10^3/uL (1.5-6.6); PLT - PLATELET COUNT 226 10^3/uL (130-450); RED BLOOD COUNT 4.83 10^6/uL (4.20-5.40); RED CELL DISTRIBUTION WIDTH 13.6 % (12.0-15.0); WHITE BLOOD COUNT 5.7 x10^3/uL (4.8-10.8)
[2018-02-08 15:46] LABS: PT - PROTHROMBIN TIME 11.6 secs (9.9-12.6)
[2018-02-08 15:53] LABS: ALBUMIN 4.3 g/dL (3.2-5.5); ALBUMIN/GLOBULIN RATIO 1.3 (1.0-2.2); BILIRUBIN,TOTAL 0.9 mg/dL (0.2-1.0); CALCIUM 9.4 mg/dL (8.5-10.3); CREATININE 0.7 mg/dL (0.4-1.0); TOTAL PROTEIN 7.7 g/dL (6.7-8.2)
--- NOTE | 2018-02-08 17:01 | CT Report ---
Reason: right eye bleeding, subconjunctival hemorrhage, Procedure Date: 02/08/2018 Accession Number: [id number] / [id number] Procedure: CT - Head W/O CPT Code: FULL RESULT: EXAM: CT HEAD EXAM DATE: 02/08/2018 03:56 PM. CLINICAL HISTORY: Right eye bleeding, subconjunctival hemorrhage. COMPARISON: 10/23/2016. TECHNIQUE: Multiaxial CT images were obtained from the foramen magnum to the vertex. Reformats: Sagittal and coronal. IV contrast: None. In accordance with CT protocol optimization, one or more of the following dose reduction techniques were utilized for this exam: automated exposure control, adjustment of mA and/or KV based on patient size, or use of iterative reconstructive technique. FINDINGS: Parenchyma: No intraparenchymal hemorrhage. No evidence of mass, midline shift, or CT findings of acute infarct. Hypoattenuation in the right internal capsule is consistent with an old infarct. Probable old lacunar infarct in the left anterior basal ganglia. Velasuqez-white differentiation is distinct. Extraaxial Spaces: Normal for age. No subdural or epidural collections identified. Ventricles: Normal in size and position. Sinuses and Orbits: Mild swelling of the right eyelid. No globe or intraorbital abnormality evident. Bones: No evidence of fracture or calvarial defect. Other: None. IMPRESSION: No acute intracranial abnormality. RADIA
[2018-02-08 17:12] VITALS: BP 204/85
== END 2018-02-08 17:18 | disposition home or self-care (01) ==
LOC: ED 14:52
DX: H11.31 Conjunctival hemorrhage, right eye (principal); E87.6 Hypokalemia; I10 Essential (primary) hypertension; M19.90 Unspecified osteoarthritis, unspecified site; Z79.82 Long term (current) use of aspirin; Z79.1 Long term (current) use of non-steroidal anti-inflammatories (NSAID)
CPT/HCPCS: 36415; 70450; 80053; 83690; 85025; 85610; 85730; 99283

== ENCOUNTER 2018-09-27 10:59 | Outpatient (CLI) | payer MEDICARE, OTHER | END 2018-09-27 11:00 | disposition critical access hospital (66) | LOC: EMS 10:59 | PROVIDERS: ATTEND Surgery | DX: R53.1 Weakness (principal); R41.0 Disorientation, unspecified | CPT/HCPCS: A0425; A0429 ==

== ENCOUNTER 2018-09-27 11:40 | Emergency (ER) | payer MEDICARE, OTHER ==
--- NOTE | 2018-09-27 12:20 | ED Physician Documentation ---
PD HPI Fall - Stated complaint Stated Complaint: GLF - Chief complaint Chief Complaint: Neuro - History obtained from History obtained from: Patient - History of Present Illness Mechanism of injury: Tripped Fall distance: Standing position Timing - onset: Today Injury(ies) location: Right Upper Extremity (shoulder laterally), Right Lower Extremity (hip) Associated symptoms: No: LOC, AMS Contributing factors: No: Anticoagulated Similar symptoms before: Diagnosis (hip arthritis) Recently seen: Not recently seen Review of Systems Constitutional: denies: Fever, Myalgias Nose: denies: Rhinorrhea / runny nose, Congestion Throat: denies: Sore throat Respiratory: denies: Cough GI: denies: Vomiting, Diarrhea Skin: denies: Abrasion (s), Laceration (s) Musculoskeletal: reports: Joint pain (right hip chronically) PD PAST MEDICAL HISTORY - Past Medical History Past Medical History: Yes Cardiovascular: None Respiratory: Shortness of breath Neuro: None Endocrine/Autoimmune: None GI: 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 HEENT: Chronic sinusitis Psych: None Musculoskeletal: Osteoarthritis Derm: None - Past Surgical History Past Surgical History: No HEENT: Tonsil/Adenoidectomy - Present Medications Home Medications: Ambulatory Orders Medication Instructions Recorded Confirmed RX: Calcium Carbonate/Vitamin D3 1 cap PO DAILY 10/23/16 04/28/17 [Calcium 600-Vit D3 500 Softgel] RX: Multivitamin [Multiple 1 tab PO DAILY 10/23/16 04/28/17 Vitamins] RX: Naproxen [Naprosyn] 500 mg pe PO PRN PRN 10/23/16 04/28/17 RX: [place]-3 Acid Ethyl Esters 1 gm PO DAILY #30 capsule 10/24/16 04/28/17 [Lovaza] RX: Potassium Chloride 10 meq PO DAILY 04/19/17 04/28/17 - Allergies Allergies/Adverse Reactions: Allergies Allergy/AdvReac Type Severity Reaction Status Date / Time No Known Drug Allergies Allergy Verified 04/25/17 09:54 - Social History Does the pt smoke?: No Smoking Status: Never smoker Does the pt drink ETOH?: No Does the pt have substance abuse?: No - Immunizations Immunizations are current?: No - POLST Patient has POLST: No POLST Status: Full Code PD ED PE NORMAL - Vitals Vital signs reviewed: Yes - General General: Alert and oriented X 3, No acute distress, Well developed/nourished - HEENT HEENT: Atraumatic, Pharynx benign - Neck Neck: Supple, no meningeal sign, No bony TTP, No adenopathy - Cardiac Cardiac: RRR, No murmur - Respiratory Respiratory: Clear bilaterally - Abdomen Abdomen: Soft, Non tender - Back Back: No spinal TTP - Derm Derm: Normal color, Warm and dry - Extremities Extremities: Other (Right shoulder with some tenderness anterolaterally. There is no obvious deformity. She has reasonable range of motion including abduction to 90 degrees. The right hip shows limited range of motion compared to normal. There is some crepitant feeling as she moves her hip around.) - Neuro Neuro: Alert and oriented X 3, No motor deficit, No sensory deficit, Normal speech Eye Opening: Spontaneous Motor: Obeys Commands Verbal: Oriented GCS Score: 15 Results - Vitals Vitals: Oxygen O2 Source Room air - Labs Labs: Laboratory Tests 09/27/18 09/27/18 09/27/18 12:35 12:50 12:50 WBC 7.9 RBC 4.70 Hgb 15.0 Hct 45.7 MCV 97.2 MCH 31.9 H MCHC 32.8 RDW 12.9 Plt Count 204 MPV 10.7 Neut # (Auto) 6.4 Lymph # (Auto) 0.9 L [place] # (Auto) 0.4 Eos # (Auto) 0.2 Baso # (Auto) 0.1 Absolute Nucleated RBC 0.00 Nucleated RBC % 0.0 Sodium 145 Potassium 3.6 Chloride 106 Carbon Dioxide 26 Anion Gap 13.0 BUN 14 Creatinine 0.9 Estimated GFR (MDRD) 61 L Glucose 112 H Calcium 9.5 Magnesium 2.2 Total Bilirubin 0.9 AST 20 ALT 18 Alkaline Phosphatase 63 Total Protein 7.1 Albumin 4.1 Globulin 3.0 Albumin/Globulin Ratio 1.4 Lipase 28 Urine Color YELLOW Urine Clarity CLEAR Urine pH 5.5 Ur Specific [place] 1.010 Urine Protein NEGATIVE Urine Glucose (UA) NEGATIVE Urine Ketones NEGATIVE Urine Occult Blood NEGATIVE Urine Nitrite NEGATIVE Urine Bilirubin NEGATIVE Urine Urobilinogen 0.2 (NORMAL) Ur Leukocyte Esterase NEGATIVE Ur Microscopic Review NOT INDICATED Urine Culture Comments NOT INDICATED - Rads (name of study) right hip Radiology: Prelim report reviewed (significant arthritis), See rad report right shoulder Radiology: Prelim report reviewed (mild arthritis; no fractures. ), See rad report PD MEDICAL DECISION MAKING - ED course Complexity details: reviewed results (Pretty severe arthritis of the right hip. She could consider seeing orthopedics regarding potential hip replacement. The shoulder appears okay on x-ray.), considered differential, d/w patient Departure - Departure Disposition: 01 Home, Self Care Clinical Impression: Arthritis pain, hip Fall from slip, trip, or stumble Qualifiers: Encounter type: initial encounter Qualified Code(s): W01.0XXA - Fall on same level from slipping, tripping and stumbling without subsequent striking against object, initial encounter Shoulder contusion Qualifiers: Encounter type: initial encounter Laterality: right Qualified Code(s): S40.011A - Contusion of right shoulder, initial encounter Condition: Stable Record reviewed to determine appropriate education?: Yes Follow-Up: Monico Seymour MD [Provider Admit Priv/Credential] - Comments: Continue Aleve twice daily for your pains. Add Tylenol 4 times a day if needed. Follow-up with orthopedics regarding the hip arthritis and alternative treatments or options. Activity as able. Discharge Date/Time: 09/27/18 14:52
[2018-09-27 12:45] LABS: BILIRUBIN,URINE NEGATIVE (NEGATIVE); GLUCOSE, URINE (UA) NEGATIVE (NEGATIVE); KETONES,URINE (UA) NEGATIVE (NEGATIVE); LEUKOCYTE ESTERASE, URINE NEGATIVE (NEGATIVE); NITRITE,URINE NEGATIVE (NEGATIVE); OCCULT BLOOD,URINE NEGATIVE (NEGATIVE); PH,URINE 5.5 PH (5.0-7.5); PROTEIN,URINE NEGATIVE (NEGATIVE); UROBILINOGEN,URINE 0.2 (NORMAL) E.U./dL (NORMAL)
[2018-09-27 12:54] LABS: CLARITY,URINE CLEAR (CLEAR)
[2018-09-27 12:57] LABS: BASOPHILS # (AUTO) 0.1 10^3/uL (0.0-0.1); BASOPHILS % (AUTO) 0.6 %; EOSINOPHILS # (AUTO) 0.2 10^3/uL (0.0-0.7); EOSINOPHILS % (AUTO) 2.1 %; LYMPHOCYTES # (AUTO) 0.9 10^3/uL (1.5-3.5); LYMPHOCYTES % (AUTO) 10.9 %; MEAN CORPUSCULAR HEMOGLOBIN 31.9 pg (27.0-31.0); MEAN CORPUSCULAR HGB CONC 32.8 g/dL (32.0-36.0); MEAN CORPUSCULAR VOLUME 97.2 fL (81.0-99.0); MEAN PLATELET VOLUME 10.7 fL (7.9-10.8); MONOCYTES # (AUTO) 0.4 10^3/uL (0.0-1.0); MONOCYTES % (AUTO) 4.7 %; NEUTROPHILS # (AUTO) 6.4 10^3/uL (1.5-6.6); NEUTROPHILS % (AUTO) 81.2 %; PLT - PLATELET COUNT 204 10^3/uL (130-450); RED CELL DISTRIBUTION WIDTH 12.9 % (12.0-15.0); WHITE BLOOD COUNT 7.9 x10^3/uL (4.8-10.8)
[2018-09-27 13:06] LABS: ALBUMIN 4.1 g/dL (3.2-5.5); ALBUMIN/GLOBULIN RATIO 1.4 (1.0-2.2); BILIRUBIN,TOTAL 0.9 mg/dL (0.2-1.0); CALCIUM 9.5 mg/dL (8.5-10.3); CREATININE 0.9 mg/dL (0.4-1.0); MAGNESIUM 2.2 mg/dL (1.7-2.8); TOTAL PROTEIN 7.1 g/dL (6.7-8.2)
--- NOTE | 2018-09-27 13:25 | CT Report ---
Reason: fall with confusion; no headache Procedure Date: 09/27/2018 Accession Number: [id number] / [id number] Procedure: CT - HEAD WO CPT Code: FULL RESULT: EXAM: CT HEAD EXAM DATE: 09/27/2018 01:01 PM. CLINICAL HISTORY: Fall with confusion; no headache. COMPARISON: HEAD W/O 02/08/2018 3:44 PM. TECHNIQUE: Multiaxial CT images were obtained from the foramen magnum to the vertex. Reformats: Sagittal and coronal. IV contrast: None. In accordance with CT protocol optimization, one or more of the following dose reduction techniques were utilized for this exam: automated exposure control, adjustment of mA and/or KV based on patient size, or use of iterative reconstructive technique. FINDINGS: Parenchyma: No intraparenchymal hemorrhage. No evidence of mass, midline shift, or CT findings of acute infarction. Velasquez-white differentiation is distinct. Diffuse chronic microangiopathic white matter changes are evident. Chronic bilateral basal ganglia lacunar infarction noted. Focal areas of low density noted in the wolf radiata compatible with old areas of white matter infarct. Extraaxial Spaces: Normal for age. No subdural or epidural collections identified. Ventricles: The ventricles and cortical sulci are enlarged, consistent with age-related tissue loss. Sinuses and orbits: Left maxillary sinus polyp is noted. Otherwise, the remaining paranasal sinuses, orbits, and mastoids show no significant abnormality. Bones: No evidence of fracture or calvarial defect. Other: None. IMPRESSION: Generalized age-related cortical atrophic changes without evidence of acute intracranial abnormality. RADIA
--- NOTE | 2018-09-27 13:46 | XRAY Report ---
Reason: fall with exac of ongoing hip pain Procedure Date: 09/27/2018 Accession Number: [id number] / [id number] Procedure: XR - Hip w/Pelvis 2-3V RT CPT Code: FULL RESULT: EXAM: RIGHT HIP RADIOGRAPHY EXAM DATE: 09/27/2018 01:19 PM. CLINICAL HISTORY: Fall with exac of ongoing hip pain. COMPARISON: None. TECHNIQUE: 2 views. FINDINGS: Bones: There is a chronic advanced degenerative process of the right hip. There is hypertrophy and flattening of the articular surface of the right femoral head. There is chronic bony remodeling with sclerosis and spurring of the acetabulum. No acute fracture is identified. Joints: There is joint space narrowing at the right hip. The left hip joint space is preserved. Soft Tissues: There are calcified pelvic phleboliths. IMPRESSION: 1. Advanced chronic degenerative disease with marked bony remodeling of the hip joint, joint space narrowing without a visualized acute fracture. RADIA
--- NOTE | 2018-09-27 13:47 | XRAY Report ---
Reason: fall with some shoulder pain Procedure Date: 09/27/2018 Accession Number: [id number] / [id number] Procedure: XR - Shoulder 3 View RT CPT Code: FULL RESULT: EXAM: RIGHT SHOULDER RADIOGRAPHY EXAM DATE: 09/27/2018 01:21 PM. CLINICAL HISTORY: Fall with some shoulder pain. COMPARISON: None. TECHNIQUE: 3 views. FINDINGS: Bones: Negative for fracture. No destructive bony abnormality. Joints: Joint space and alignment of glenohumeral joint and acromioclavicular joint appears satisfactory. Soft tissues: Negative for right pneumothorax. IMPRESSION: No fracture or subluxation of right shoulder RADIA
[2018-09-27 14:47] VITALS: BP 186/87
== END 2018-09-27 14:52 | disposition home or self-care (01) ==
LOC: ED 11:40
DX: S40.011A Contusion of right shoulder, initial encounter (principal); M16.11 Unilateral primary osteoarthritis, right hip; W01.0XXA Fall on same level from slipping, tripping and stumbling without subsequent striking against object, initial encounter
CPT/HCPCS: 36415; 70450; 80053; 81001; 81003; 83690; 83735; 85025; 87086; 99284

== ENCOUNTER 2022-04-14 19:00 | Outpatient (CLI) | payer MEDICARE, OTHER | END 2022-04-14 19:01 | disposition critical access hospital (66) | LOC: EMS 19:00 | DX: R53.1 Weakness (principal); R63.8 Other symptoms and signs concerning food and fluid intake; W06.XXXA Fall from bed, initial encounter; Y92.003 Bedroom of unspecified non-institutional (private) residence as the place of occurrence of the external cause | CPT/HCPCS: A0425; A0429 ==

== ENCOUNTER 2022-04-14 19:44 | Emergency (ER) | payer MEDICARE, OTHER ==
[2022-04-14 20:13] LABS: BASOPHILS % (AUTO) 0.3 %; EOSINOPHILS # (AUTO) 0.1 10^3/uL (0.0-0.7); EOSINOPHILS % (AUTO) 0.6 %; HCT - HEMATOCRIT 43.9 % (37.0-47.0); LYMPHOCYTES # (AUTO) 0.7 10^3/uL (1.5-3.5); MEAN CORPUSCULAR HEMOGLOBIN 30.5 pg (27.0-31.0); MEAN CORPUSCULAR HGB CONC 31.9 g/dL (32.0-36.0); MEAN CORPUSCULAR VOLUME 95.6 fL (81.0-99.0); MEAN PLATELET VOLUME 10.7 fL (7.9-10.8); MONOCYTES % (AUTO) 8.4 %; NEUTROPHILS # (AUTO) 9.7 10^3/uL (1.5-6.6); NEUTROPHILS % (AUTO) 84.1 %; PLT - PLATELET COUNT 283 10^3/uL (130-450); RED BLOOD COUNT 4.59 10^6/uL (4.20-5.40); RED CELL DISTRIBUTION WIDTH 13.9 % (12.0-15.0); WHITE BLOOD COUNT 11.5 x10^3/uL (4.8-10.8)
[2022-04-14] MEDS ORDERED: SODIUM CHLORIDE 0.9% 1,000 ML IV STA (20:20)
[2022-04-14 20:26] LABS: ALBUMIN 3.7 g/dL (3.2-5.5); CREATININE 1.2 mg/dL (0.4-1.0); POTASSIUM 3.5 mmol/L (3.5-5.0); TOTAL PROTEIN 7.4 g/dL (6.7-8.2)
--- NOTE | 2022-04-14 20:26 | ED Physician Documentation ---
PD HPI Fall - Stated complaint Stated Complaint: GLF, ON GROUND 5 DAYS - Chief complaint Chief Complaint: Laceration - History obtained from History obtained from: Patient, EMS - History of Present Illness Mechanism of injury: Unknown (She is not quite sure why she fell out of bed. Apparently was sleeping in awoke with a startle as she was on the floor. Injury of the left arm with some bruising. She was in a position between bed and wall and unable to really maneuver or get herself up due to weakness.) Fall distance: From bed Where injury occurred: A house / apartment (A neighbor subsequently checked in on her and found her on the floor. The patient believes she was on their for 5 days alternating between sleeping and being awake.) Timing - onset: How many days ago (5) Injury(ies) location: Back, Left Uppper Extremity, Other (sacral and gluteal area.) Associated symptoms: No: LOC, AMS, Weakness, Paresthesias Worsens with: Palpation Contributing factors: No: Anticoagulated Similar symptoms before: Has not had sx before Review of Systems Constitutional: denies: Fever, Chills Nose: denies: Rhinorrhea / runny nose, Congestion Throat: denies: Sore throat Cardiac: denies: Pedal edema Respiratory: denies: Cough GI: denies: Abdominal Pain, Nausea, Vomiting, Diarrhea Neurologic: reports: Generalized weakness. 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 : Incontinence HEENT: Chronic sinusitis Psych: None Musculoskeletal: Osteoarthritis Derm: None - Past Surgical History Past Surgical History: No HEENT: Tonsil/Adenoidectomy - Present Medications Home Medications: Ambulatory Orders Medication Instructions Recorded Confirmed Calcium Carbonate/Vitamin D3 1 cap PO DAILY 10/23/16 04/28/17 [Calcium 600-Vit D3 500 Softgel] Multivitamin [Multiple Vitamins] 1 tab PO DAILY 10/23/16 04/28/17 Naproxen [Naprosyn] 500 mg pe PO PRN PRN 10/23/16 04/28/17 [place]-3 Acid Ethyl Esters [Lovaza] 1 gm PO DAILY #30 capsule 10/24/16 04/28/17 Potassium Chloride 10 meq PO DAILY 04/19/17 04/28/17 - Allergies Allergies/Adverse Reactions: Allergies Allergy/AdvReac Type Severity Reaction Status Date / Time No Known Drug Allergies Allergy Verified 04/14/22 20:00 - Living Situation Living Situation: reports: Alone Living Arrangement: reports: At home - Social History Does the pt smoke?: No Smoking Status: Never smoker Does the pt drink ETOH?: No Does the pt have substance abuse?: No - Family History Family history: reports: Non contributory - Immunizations Immunizations are current?: No - POLST Patient has POLST: No POLST Status: Full Code PD ED PE NORMAL - Vitals Vital signs reviewed: Yes - General General: Alert and oriented X 3, No acute distress, Well developed/nourished - HEENT HEENT: Atraumatic, Pharynx benign. No: Moist mucous membranes - Neck Neck: Supple, no meningeal sign, No adenopathy, No JVD - Cardiac Cardiac: No murmur. No: RRR (regular but tachycardic) - Respiratory Respiratory: No respiratory distress, Clear bilaterally - Abdomen Abdomen: Soft, Non tender - Back Back: No CVA TTP - Derm Derm: Normal color, Warm and dry, Other (Pressure score sore with skin breakdown in the sacral and perirectal area just through the upper skin layers. No exposure of the fatty tissue. It is locally tender. Some contamination with her feces but no signs of infection. Right upper outer arm with a rounded area of redness/skin blister.) - Extremities Extremities: Other (The left upper arm and shoulder with bruising and some swelling. Guarded range of motion actively. Passive range of motion is better. Also bruising noted on the left forearm and left thigh.) - Neuro Neuro: Alert and oriented X 3, No motor deficit, No sensory deficit, Normal speech Results - Vitals Vitals: Vital Signs - 24 hr 04/14/22 04/14/22 04/14/22 19:48 21:35 22:10 Temperature 36.8 C Heart Rate 104 H 88 88 Respiratory 18 20 20 Rate Blood Pressure 165/88 H 166/67 H 159/74 H O2 Saturation 99 100 98 04/15/22 04/15/22 04/15/22 00:24 02:00 04:20 Temperature Heart Rate 82 81 71 Respiratory 21 18 19 Rate Blood Pressure 158/57 H 167/65 H 149/58 H O2 Saturation 98 96 94 Oxygen O2 Source Room air - Labs Labs: Laboratory Tests 04/14/22 04/14/22 04/14/22 20:08 20:08 20:08 WBC 11.5 H RBC 4.59 Hgb 14.0 Hct 43.9 MCV 95.6 MCH 30.5 MCHC 31.9 L RDW 13.9 Plt Count 283 MPV 10.7 Neut # (Auto) 9.7 H Lymph # (Auto) 0.7 L Ada # (Auto) 1.0 Eos # (Auto) 0.1 Baso # (Auto) 0.0 Absolute Nucleated RBC 0.00 Nucleated RBC % 0.0 Sodium 152 H Potassium 3.5 Chloride 111 Carbon Dioxide 26 Anion Gap 15.0 H BUN 53 H Creatinine 1.2 H Estimated GFR (MDRD) 43 L Glucose 116 H Calcium 10.0 Total Bilirubin 1.0 AST 49 H ALT 75 H Alkaline Phosphatase 59 Total Creatine Kinase 443 H Total Protein 7.4 Albumin 3.7 Globulin 3.7 Albumin/Globulin Ratio 1.0 Lipase 50 Urine Color Urine Clarity Urine pH Ur Specific [place] Urine Protein Urine Glucose (UA) Urine Ketones Urine Occult Blood Urine Nitrite Urine Bilirubin Urine Urobilinogen Ur Leukocyte Esterase Urine RBC Urine WBC Ur Squamous Epith Cells Amorphous Sediment Urine Bacteria Ur Microscopic Review Urine Culture Comments 04/15/22 00:11 WBC RBC Hgb Hct MCV MCH MCHC RDW Plt Count MPV Neut # (Auto) Lymph # (Auto) Ada # (Auto) Eos # (Auto) Baso # (Auto) Absolute Nucleated RBC Nucleated RBC % Sodium Potassium Chloride Carbon Dioxide Anion Gap BUN Creatinine Estimated GFR (MDRD) Glucose Calcium Total Bilirubin AST ALT Alkaline Phosphatase Total Creatine Kinase Total Protein Albumin Globulin Albumin/Globulin Ratio Lipase Urine Color YELLOW Urine Clarity SL. CLOUDY Urine pH 6.0 Ur Specific [place] 1.025 Urine Protein TRACE Urine Glucose (UA) NEGATIVE Urine Ketones >=80 H Urine Occult Blood MODERATE H Urine Nitrite NEGATIVE Urine Bilirubin NEGATIVE Urine Urobilinogen 0.2 (NORMAL) Ur Leukocyte Esterase MODERATE H Urine RBC 6-10 H Urine WBC 11-25 H Ur Squamous Epith Cells FEW Squamous Amorphous Sediment Few Urine Bacteria Few Ur Microscopic Review INDICATED Urine Culture Comments INDICATED PD Medical Decision Making - ED course Complexity details: reviewed results (Chest x-ray is clear without any signs of infiltrates or fluid. The left upper humerus and shoulder do not show any obvious fractures no dislocation.), considered differential (She had fallen from bed without obvious cause. She denies fainting or altered mentation. She was unable to get up due to her position and strength. She was reportedly on the floor for 5 days and developed some pressure sores on the sacral and perirectal area and the right upper arm.) Social Determinants of Health: The patient lives alone and does have some mobility difficulties using either a cane or walker. She does not have transportation of her own. I think she could benefit from some home health aide and perhaps some home modifications for b athroom rails and possibly hallway and other mobility aids. Regarding her wound, short-term home nursing for wound care could be appropriate as well. We will consult to social work to see if they can help in these information or assistance in initiating. The patient would also perhaps benefit from information or assistance enrolling in [employer] so that if she had to call for assistance she would be able to do so and not be stuck on the floor for days. ED course: The patient had fallen from bed and was on the floor for she states 5 days. She was unable to eat or drink during that time. She did have some soiling of her self. She developed pressure sore in the sacrum and right upper arm. She had some bruising from the fall and her left shoulder and also left arm and leg. She has general weakness pre-existing and uses a cane or walker. With the fall and injuries she was unable to get herself up from the position she was then against the wall in between the bed. A friend or neighbor subsequently came by and found her that way and called EMS. No doubt she is clinically dehydrated. We did check labs to see if her electrolytes and kidney function were significantly off. She is given IV fluids. Her CK was slightly elevated in the 400s but not seriously though. She was given IV fluids and some medication to help with pains and is feeling reasonably better. Her left arm does hurt some with range of motion. Chest x- ray was not showing any lung abnormalities and incidentally the left shoulder is seen and does not have any fractures. My concern is that the patient does not really have any grounds for admission but she is still having general weakness from having been on the floor and we want to ensure she is able to eat and drink well and maneuver with her walker. I also discussed with the patient other adjuncts that may be useful such as [employer] button to contact an emergency and mobility aids in the house such as bathroom bars and railings etc. We kept the patient here in the ER overnight in order to see that she is doing well and for social work to be able to assist in obtaining some of these at least information if not initiating the resources such as [facility]. The patient may also benefit from home health for wound care on the sacral area. Incidentally that area was cleaned well by nursing here and some ointment applied and dressing. Pictures were taken of the wounds. Wound care visits could be appropriate. The patient states she is considering whether to move to her daughter's house in [place] in [place]. That will be decided in the near future but for now the patient does want to be able to get around in her apartment and be able to contact help if needed. Departure - Departure Clinical Impression: Accidental fall from bed, Generalized weakness, Contusion of shoulder, left, Pressure sore on sacrum, Dehydration Condition: Stable Record reviewed to determine appropriate education?: Yes Comments: Stay well-hydrated. Regular diet. Tylenol every 4-6 hours if needed for pains. Cleanse the wounds with soap and water once or twice daily and apply some ointment to the areas. Continue usual medicines. Social work this morning is going to talk with you and see if they can assist you in initiating some home health for wound checks and wound care in the short- term. Also useful would be joining [employer] so that you have a means of contacting people if needed for help. You do have a walker and a cane. There may be suggestions for other aids within the house to help with being up and around like railings in the bathroom or little bars to hold onto.
--- NOTE | 2022-04-14 20:40 | XRAY Report ---
PROCEDURE: Chest 1 View X-Ray INDICATIONS: chest pain TECHNIQUE: One view of the chest was acquired. COMPARISON: None. FINDINGS: Surgical changes and devices: None. Lungs and pleura: No pleural effusions or pneumothorax. Lungs are clear. Mediastinum: Mediastinal contours appear normal. Heart size is normal. Bones and chest wall: No suspicious bony lesions. Overlying soft tissues appear unremarkable. IMPRESSION: 1. No acute cardiopulmonary disease. Reviewed by: Alexandru Shin MD on 04/14/2022 8:38 PM [facility] Approved by: Alexandru Shin MD on 04/14/2022 8:38 PM [facility] Station ID: [id number]
[2022-04-14] MEDS ORDERED: MUPIROCIN 2% OINT 1 GM TOP STA (20:54)
[2022-04-14] MEDS ORDERED: LACTATED RINGERS 1,000 ML IV STA (20:56)
[2022-04-15 00:19] LABS: GLUCOSE, URINE (UA) NEGATIVE (NEGATIVE); KETONES,URINE (UA) >=80 mg/dL (NEGATIVE); LEUKOCYTE ESTERASE, URINE MODERATE (NEGATIVE); NITRITE,URINE NEGATIVE (NEGATIVE); OCCULT BLOOD,URINE MODERATE (NEGATIVE); PROTEIN,URINE TRACE mg/dL (NEGATIVE); UROBILINOGEN,URINE 0.2 (NORMAL) E.U./dL (NORMAL)
[2022-04-15 00:21] LABS: CLARITY,URINE SL. CLOUDY (CLEAR)
[2022-04-15 00:27] LABS: BACTERIA,URINE Few /HPF (None Seen); BILIRUBIN,URINE NEGATIVE (NEGATIVE); ICTOTEST,URINE NEGATIVE; SQUAMOUS EPITHELIAL CELL,UR FEW Squamous (<= Few)
[2022-04-15 00:28] LABS: AMORPHOUS SEDIMENT,UR Few /LPF
[2022-04-15] MEDS ORDERED: cephALEXin 250 MG CAPSULE PO STA (07:22)
[2022-04-15 07:44] LABS: BASOPHILS % (AUTO) 0.5 %; EOSINOPHILS # (AUTO) 0.3 10^3/uL (0.0-0.7); EOSINOPHILS % (AUTO) 3.2 %; HCT - HEMATOCRIT 38.2 % (37.0-47.0); HGB - HEMOGLOBIN 12.4 g/dL (12.0-16.0); LYMPHOCYTES # (AUTO) 1.1 10^3/uL (1.5-3.5); LYMPHOCYTES % (AUTO) 12.2 %; MEAN CORPUSCULAR HEMOGLOBIN 30.8 pg (27.0-31.0); MEAN CORPUSCULAR HGB CONC 32.5 g/dL (32.0-36.0); MEAN PLATELET VOLUME 10.4 fL (7.9-10.8); MONOCYTES # (AUTO) 0.8 10^3/uL (0.0-1.0); MONOCYTES % (AUTO) 9.5 %; NEUTROPHILS # (AUTO) 6.4 10^3/uL (1.5-6.6); NEUTROPHILS % (AUTO) 73.7 %; PLT - PLATELET COUNT 214 10^3/uL (130-450); RED BLOOD COUNT 4.02 10^6/uL (4.20-5.40); RED CELL DISTRIBUTION WIDTH 13.7 % (12.0-15.0); WHITE BLOOD COUNT 8.6 x10^3/uL (4.8-10.8)
[2022-04-15 07:50] LABS: ALBUMIN 2.9 g/dL (3.2-5.5); BILIRUBIN,TOTAL 1.2 mg/dL (0.2-1.0); CALCIUM 9.4 mg/dL (8.5-10.3); CREATININE 0.8 mg/dL (0.4-1.0); POTASSIUM 3.6 mmol/L (3.5-5.0); TOTAL PROTEIN 5.9 g/dL (6.7-8.2)
[2022-04-15] MEDS ORDERED: ELECTROLYTE-A SOLUTION 1,000 ML IV STA (09:20)
--- NOTE | 2022-04-15 09:24 | CT Report ---
PROCEDURE: HEAD WO INDICATIONS: fall, head injury possible TECHNIQUE: Noncontrast 4.5 mm thick angled axial sections acquired from the foramen magnum to the vertex. For r adiation dose reduction, the following was used: automated exposure control, adjustment of mA and/or kV according to patient size. COMPARISON: None. FINDINGS: Image quality: Excellent. CSF spaces: Basal cisterns are patent. No extra-axial fluid collections. Ventricles are normal in size and shape. Brain: No midline shift. No intracranial masses or hemorrhage. There is age-appropriate cerebral co rtical atrophy. There are prominent areas of ill-defined hypodensity in periventricular white matter and bilateral basal ganglia consistent with microvascular ischemic changes and lacunar infarcts. Velasquez -white matter interface is normal. Skull and face: Calvarium and visualized facial bones are intact, without suspicious lesions. Sinuses: Visualized sinuses and mastoids are clear. IMPRESSION: 1. No CT evidence of acute intracranial trauma. 2. No significant soft tissue injury or underlying fracture. 3. Evidence of chronic microvascular ischemic changes and lacunar infarcts. Reviewed by: Susan Bethea MD on 04/15/2022 9:23 AM PST Approved by: Susan Bethea MD on 04/15/2022 9:23 AM PST Station ID: [id number]
[2022-04-15] MEDS ORDERED: cefTRIAXone 1 GM VIAL IVP STA (10:03)
[2022-04-15 14:49] LABS: CALCIUM 8.9 mg/dL (8.5-10.3); CREATININE 0.8 mg/dL (0.4-1.0); POTASSIUM 3.4 mmol/L (3.5-5.0)
[2022-04-17] MEDS ORDERED: LOPERAMIDE 2 MG CAPSULE PO PRN (14:53)
--- NOTE | 2022-04-17 15:41 | ED Physician Documentation ---
ED Addendum - Addendum Addendum: 04/17/22 15:39 The patient was seen today. She was able to get up with her walker to bedside commode with assistance. Able to stand on both legs. There had been some loose stool last night and this morning and her request for Imodium. I did write a order for that. Otherwise she remains okay on her current medications and diet. Apparently social work is looking for adult family home or assisted living or such for her. The patient states there still is consideration for her to move to her daughter's place in [facility] but this would require packing up her house and making arrangements and such and would not be an immediate process. As such apparently we are looking for assisted living type situation and social work is still looking into places. No movement made today. We will reassess tomorrow.
--- NOTE | 2022-04-18 12:44 | ED Physician Documentation ---
ED Addendum - Addendum Addendum: 04/18/22 12:42 The patient was comfortable and conversant and interacting well. She had been up in her room with walker and assistance and able to use commode. Social work states there is a adult family home that will take the patient on the which is 2 days from now. They sent paperwork to be filled out and asked that a POLST form be done as well. I talked with the patient and discussed goals of care and her desires on level of intervention. The POLST form was filled out at the limited interventions and DNR elements. She also wanted to be sure we knew she is a member of the [employer] and has prepaid cremation in place so to be sure to contact the [employer] when she dies. She has a card in her wallet for them. The patient otherwise did not have any particular complaints at this time. Social work was coming back to work through some of the paperwork with the patient.
--- NOTE | 2022-04-19 12:57 | ED Physician Documentation ---
ED Addendum - Addendum Addendum: 04/19/22 12:57 Social work asked that we place a OT and PT orders for the patient in [facility]. I do see that that actually had been done on the sixth with the evaluation reports written on the eighth. I will see if those were adequate.
[2022-04-20 13:29] VITALS: BP 150/97
== END 2022-04-20 13:35 | disposition home or self-care (01) ==
LOC: EDUNIT# → ED 19:44
DX: S40.012A Contusion of left shoulder, initial encounter (principal); W06.XXXA Fall from bed, initial encounter; Y92.009 Unspecified place in unspecified non-institutional (private) residence as the place of occurrence of the external cause; E86.0 Dehydration; R53.1 Weakness
CPT/HCPCS: 36415; 70450; 71045; 80048; 80053; 81001; 82550; 83690; 85025; 87086; 87635; 93005; 96374; 99284; A9270; J7120; 81003